=== PATIENT | female | born 1980 | race Caucasian/White ===

== ENCOUNTER 2016-12-11 12:58 | Inpatient (IN) | payer MEDICARE, OTHER ==
[2016-12-11 14:10] VITALS: BMI 30.2
--- NOTE | 2016-12-11 14:15 | ED PDOC ---
Arrival/HPI - General Chief Complaint: GI Problem Time Seen by Provider: 12/11/16 13:43 Historian: Patient - History of Present Illness Narrative History of Present Illness (Text): 12/11/16 14:00 A 36 year old female, whose past medical history includes cholelithiasis, nephrolithiasis and anxiety, presents to the emergency department complaining of generalized upper abdominal pain associated with nausea since this morning, sudden onset. She says the pain is a "10 out of a 10" on the pain scale. Patient notes some tightness in the chest, which is associated with shortness of breath. Patient denies any fever, urinary changes, or other complaints at this time. PMD: Dr. Frias 12/12/16 08:05 Time/Duration: 4-6 hours Symptom Onset: Sudden Symptom Course: Unchanged Quality: Tightness, Other Severity Level: 10 Activities at Onset: Rest Context: Home Past Medical History - Provider Review Nursing Documentation Reviewed: Yes - Infectious Disease Hx of Infectious Diseases: None - Tetanus Immunization Tetanus Immunization: Unknown - Cardiac Hx Cardiac Disorders: No Hx RI: No Hx Heart Murmur: No Hx Heart Transplant: No Hx Hypertension: No Hx Hypotension: No Hx Internal Defibrillator: No Hx Mitral Valve Prolapse: No Hx Pacemaker: No Hx Peripheral Edema: No Hx Peripheral Vascular Disease: No - Pulmonary Hx Respiratory Disorders: No - Neurological Hx Neurological Disorder: No - HEENT Hx HEENT Disorder: No - Renal Hx Kidney Stones: Yes - Endocrine/Metabolic Hx Endocrine Disorders: No - Hematological/Oncological Hx Blood Disorders: No Hx Anemia: Yes - Integumentary Hx Dermatological Disorder: No - Musculoskeletal/Rheumatological Hx Musculoskeletal Disorders: No - Gastrointestinal Hx Gastrointestinal Disorders: No Hx Gall Bladder Disease: Yes (Cholelithiasis on recent Abdominal U/S) Hx Gastroesophageal Reflux: Yes - Genitourinary/Gynecological Hx Genitourinary Disorders: No - Psychiatric Hx Anxiety: Yes (Sees a Psychiatrist in [place]) Hx Panic Disorder: Yes Hx Post Traumatic Stress Disorder: Yes Hx Substance Use: No - Surgical History Hx Section: Yes (x 2) - Anesthesia Hx Anesthesia: Yes Hx Anesthesia Reactions: No Hx Malignant Hyperthermia: No - Suicidal Assessment Feels Threatened In Home Enviroment: No Family/Social History - Physician Review Nursing Documentation Reviewed: Yes Family/Social History: Unknown Family HX Smoking Status: Heavy Smoker > 10 Cigarettes Daily Hx Alcohol Use: No Hx Substance Use: No Hx Substance Use Treatment: No Allergies/Home Meds Allergies/Adverse Reactions: Allergies azithromycin [From Zithromax] Allergy (Verified 12/11/16 13:20) ANAPHYLAXIS clarithromycin [From Biaxin] Allergy (Verified 12/11/16 13:20) ANAPHYLAXIS Home Medications: Home Meds Medication Instructions Recorded Confirmed Clonazepam [Klonopin] 1 mg PO DAILY 03/21/14 12/11/16 Multivit/Folic Acid/I 1 tab PO DAILY 02/01/16 12/11/16 [ Plus] Review of Systems - Review of Systems Constitutional: absent: Fevers Eyes: absent: Vision Changes ENT: absent: Rhinorrhea Respiratory: SOB Cardiovascular: Chest Pain Gastrointestinal: Abdominal Pain, Nausea Genitourinary Female: absent: Dysuria, Urine Output Changes Musculoskeletal: absent: Back Pain Skin: absent: Rash Neurological: absent: Headache Endocrine: absent: Polyuria Psychiatric: absent: Depression Physical Exam - Physical Exam Narrative Physical Exam (Text): Head: Atraumatic. Normocephalic. Eyes: PERRL. EOMI. Conjunctivae are not pale. ENT: Mucous membranes are moist and intact. Oropharynx is clear and symmetric. Neck: Supple. Full ROM. No JVD. No lymphadenopathy. Cardiovascular: Regular rate. Regular rhythm. No murmurs, rubs, or gallops. Distal pulses are 2+ and symmetric. Pulmonary/Chest: No evidence of respiratory distress. Clear to auscultation bilaterally. No wheezing, rales or rhonchi. Abdominal: Focal tenderness with palpation in the epigastric region. Diffuse pain to LUQ and RUQ. Negative Caba's sign. No rebound, guarding, or rigidity. No organomegaly. Good bowel sounds. Back: No CVA tenderness. No midline tenderness. Extremities: No edema. No cyanosis. No clubbing. Full range of motion in all extremities. No calf tenderness. Skin: Skin is diaphoretic. Neurological: Alert, awake, and oriented to person, place, time, and situation. Normal speech. Motor and sensory intact. Psychiatric: Good eye contact. Anxious. Vital Signs Reviewed: Yes Vital Signs Temp Pulse Resp BP Pulse Ox 12/11/16 13:25 98.0 F 94 H 18 121/82 98 12/11/16 13:14 98 F 94 H 18 121/82 98 Temperature: Afebrile Blood Pressure: Normal Pulse: Regular Respiratory Rate: Normal Appearance: Positive for: Uncomfortable Pain Distress: Severe Mental Status: Positive for: Alert and Oriented X 3 Medical Decision Making ED Course and Treatment: 12/11/16 14:00 Impression: A 36 year old female with abdominal pain. On examination patient has focal tenderness to the epigastric region. Differential Diagnosis include but are not limited to: biliary colic vs. cholecystitis vs. gastritis Plan: Give IV medication for pain. Obtain ultrasound of the gallbladder. Prior Visits: Notes and results from previous visits were reviewed. Patient had an ultrasound in 03/22 which showed cholelithiasis. Progress Notes: Patient with severe epigastric pain on palpation. Described as sudden onset. She reports prior hx of gallstones. No flank pain reported but pain at times radiates to back. She initially does not want iv narcotics. After iv fluids, pepcid, zofran, pain persistent and severe. IV morphine given. Ultrasound reveals gallstones. Suspect possible cholecysitis given persistent pain. Blood cultures and iv antibiotics initiated. Will consult surgery and order HIDA. No chest pain or shortness of breath on re- evaluation. Lungs clear. Patient's treatment plan reviewed with patient and family and she is agreeable. Surgery consulted and present in ED. On re-exam, patient with no chest pain or sob. Suspect component of anxiety or reflux that made patient feel sob initially. No calf pain, no pleuritic pain. - Lab Interpretations Lab Results: 12/11/16 15:11 12/11/16 15:11 Lab Results 12/11/16 15:31: Urine Color Yellow, Urine Appearance Clear, Urine pH 6.0, Ur Specific [place] >= 1.030, Urine Protein Trace H, Urine Glucose (UA) Negative, Urine Ketones Negative, Urine Blood Moderate H, Urine Nitrate Negative, Urine Bilirubin Negative, Urine Urobilinogen 0.2, Ur Leukocyte Esterase Negative, Urine RBC 15 - 20, Urine WBC 0 - 2, Ur Epithelial Cells 4 - 5, Uric Acid Crystals Small, Other Crystals Bili, Amorphous Sediment Few, Urine Bacteria Mod , Hyaline Casts 0 - 2, Urine HCG, Qual Negative 12/11/16 15:11: WBC 13.6 H D, RBC 4.32, Hgb 13.7, Hct 40.2, MCV 93.1, MCH 31.7, MCHC 34.1, RDW 13.8, Plt Count 353, MPV 9.2, Gran % 73.8 H, Lymph % (Auto) 18.6 L, [place] % (Auto) 7.4 H, Eos % (Auto) 0.1 L, Baso % (Auto) 0.1, Gran # 10.04 H, Lymph # 2.5, [place] # 1.0 H, Eos # 0.0, Baso # 0.01, PT 9.8 L, INR 0.91 L, APTT 25.9, pO2 77 H, VBG pH 7.34, VBG pCO2 41.0, VBG HCO3 22.1, VBG Total CO2 23.4, VBG O2 Sat (Calc) 96.6 H, VBG Base Excess -3.5 L, VBG Potassium 4.6, Glucose 117 H, Lactate 1.9, FiO2 21.0, Sodium 136.0, Potassium 4.8, Chloride 108.0 H, Carbon Dioxide 24, Anion Gap 13, BUN 11, Creatinine 0.6, Est GFR ( Amer) > 60, Est GFR (Non-Af Amer) > 60, Random Glucose 114 H, Calcium 9.3, Total Bilirubin 0.7, AST 37, ALT 24, Alkaline Phosphatase 86, Lactate Dehydrogenase 467, Total Creatine Kinase 82, Troponin I < 0.01, Total Protein 8.1, Albumin 4.3 , Globulin 3.8, Albumin/Globulin Ratio 1.1, Amylase 73, Lipase 34, Venous Blood Potassium 4.6 I have reviewed the lab results: Yes - RAD Interpretation Radiology Orders: 12/11/16 14:12 CHEST ONE VIEW [RAD] Stat 12/11/16 14:13 ABDOMEN COMPLETE [US] Stat - Medication Orders Current Medication Orders: Sodium Chloride (Sodium Chloride 0.9%) 1,000 mls @ 100 mls/hr IV .Q10H BHARAT Last Admin: 12/11/16 16:40 Dose: 100 MLS/HR eMAR Start Stop Document 12/11/16 16:40 OCS (Rec: 12/11/16 16:40 OCS [facility] [id number]) Intravenous Solution Start Date 12/11/16 Start Time 16:40 Morphine Sulfate (Morphine) 2 mg IVP Q4 PRN PRN Reason: Pain, moderate (4-7) Morphine Sulfate (Morphine) 4 mg IVP Q4H PRN PRN Reason: Pain, severe (8-10) Ondansetron HCl (Zofran Inj) 4 mg IVP Q4H PRN PRN Reason: Nausea/Vomiting Pantoprazole Sodium (Protonix Inj) 40 mg IVP DAILY BHARAT Discontinued Medications Clonazepam (Klonopin) 1 mg PO STAT STA PRN Reason: Protocol Stop: 12/11/16 22:11 Last Admin: 12/11/16 22:29 Dose: 1 MG Behavioural Document 12/11/16 22:29 PCO (Rec: 12/11/16 22:30 [place]O [id number] Nonmedicinal Nonmedicinal Interventions Redirect Behavior Behavior for Medication: Anxiety Insomnia Re-Assess: Reassess Psych Meds Document 12/11/16 23:29 PCO (Rec: 12/11/16 23:45 PCO [facility] [id number]) Reassess Psych Med Effective Famotidine (Pepcid) 20 mg IVP STAT STA Stop: 12/11/16 14:16 Last Admin: 12/11/16 16:40 Dose: 20 MG IVP Administration Document 12/11/16 16:40 OCS (Rec: 12/11/16 16:40 OCS [facility] [id number]) Charges for Administration # of IVP Administrations 1 Ceftriaxone Sodium (Rocephin 1 Gram Ivpb) 100 mls @ 200 mls/hr IVPB ONCE STA PRN Reason: Protocol Stop: 12/11/16 18:30 Last Admin: 12/11/16 19:33 Dose: 200 MLS/HR eMAR Start Stop Document 12/11/16 19:33 RD (Rec: 12/11/16 19:33 RD [id number]) Intravenous Solution Start Date 12/11/16 Start Time 19:33 End Date 12/11/16 End time 20:03 Total Infusion Time 30 Morphine Sulfate (Morphine) 2 mg IVP STAT STA Stop: 12/11/16 17:28 Last Admin: 12/11/16 17:46 Dose: 2 MG MAR Pain Assessment Document 12/11/16 17:46 OCS (Rec: 12/11/16 17:46 OCS [facility] [email or web address]) Pain Reassessment Is this a pain reassessment? Yes Sleep Is patient sleeping during reassessment? No Presence of Pain Presence of Pain Yes Pain Scale Used Pain Scale Used Numeric Location Pain Location Body Site Abdomen Description Description Constant Intensity of Pain at present 10 Pain Behavior Moaning Irritability IVP Administration Document 12/11/16 17:46 OCS (Rec: 12/11/16 17:46 OCS [facility] [id number]) Charges for Administration # of IVP Administrations 1 Morphine Sulfate (Morphine) 2 mg IVP STAT STA Stop: 12/11/16 19:03 Last Admin: 12/11/16 19:33 Dose: 2 MG MAR Pain Assessment Document 12/11/16 19:33 RD (Rec: 12/11/16 19:33 RD [id number]) Pain Reassessment Is this a pain reassessment? No Sleep Is patient sleeping during reassessment? No Presence of Pain Presence of Pain Yes IVP Administration Document 12/11/16 19:33 RD (Rec: 12/11/16 19:33 RD [id number]) Charges for Administration # of IVP Administrations 1 Ondansetron HCl (Zofran Inj) 4 mg IVP ONCE ONE Stop: 12/11/16 14:16 Last Admin: 12/11/16 16:41 Dose: 4 MG IVP Administration Document 12/11/16 16:41 OCS (Rec: 12/11/16 16:41 [id number] Charges for Administration # of IVP Administrations 1 - Scribe Statement The provider has reviewed the documentation as recorded by the Renateibe Carole Arce Provider Scribe Attestation: All medical record entries made by the Scribe were at my direction and personally dictated by me. I have reviewed the chart and agree that the record accurately reflects my personal performance of the history, physical exam, medical decision making, and the department course for this patient. I have also personally directed, reviewed, and agree with the discharge instructions and disposition. Disposition/Present on Arrival - Present on Arrival Any Indicators Present on Arrival: No History of DVT/PE: No History of Uncontrolled Diabetes: No Urinary Catheter: No History of Decub. Ulcer: No History Surgical Site Infection Following: None - Disposition Have Diagnosis and Disposition been Completed?: Yes Diagnosis: Cholelithiasis, Abdominal pain Disposition: HOSPITALIZED Disposition Time: 17:00 Patient Plan: Admission Patient Problems: Current Active Problems Problem Status Diagnosed Abdominal pain Acute Cholelithiasis Acute Condition: FAIR
[2016-12-11 15:18] LABS: ADD MANUAL DIFF? NO
[2016-12-11 15:23] LABS: VENOUS BLOOD GAS BASE EXCESS -3.5 mmol/L (0.0-2.0); VENOUS BLOOD PH 7.34 (7.32-7.43)
[2016-12-11 15:31] LABS: BASO # 0.01 K/mm3 (0.0-2.0); BASO % 0.1 % (0.0-3.0); EOS % 0.1 % (1.5-5.0); GRAN # 10.04 (1.4-6.5); GRAN % 73.8 % (50.0-68.0); HEMATOCRIT 40.2 % (36.0-48.0); LYMPH # 2.5 (1.2-3.4); LYMPH % 18.6 % (22.0-35.0); MEAN CELL VOLUME 93.1 fL (80.0-105.0); MEAN CORPUSCULAR HEMOGLOBIN 31.7 pg (25.0-35.0); MEAN CORPUSCULAR HGB CONC 34.1 g/dl (31.0-37.0); MEAN PLATELET VOLUME 9.2 fl (7.0-11.0); MONO % 7.4 % (1.0-6.0); PLATELET COUNT 353 10^3/uL (120.0-450.0); RED CELL DISTRIBUTION WIDTH 13.8 % (11.5-14.5); WHITE BLOOD COUNT 13.6 10^3/ul (4.5-11.0)
[2016-12-11 15:34] LABS: ALB/GLOB RATIO 1.1 (1.1-1.8); ALKALINE PHOSPHATASE 86 U/L (38-133); ALT/SGPT 24 U/L (7-56); AMYLASE 73 U/L (35-125); AST/SGOT 37 U/L (15-39); BILIRUBIN,TOTAL 0.7 mg/dL (0.2-1.3); BLOOD UREA NITROGEN 11 mg/dL (7-21); CALCIUM 9.3 mg/dL (8.4-10.5); CARBON DIOXIDE 24 mmol/L (21-33); CHLORIDE 104 mmol/L (98-107); GFR AFRICAN-AMERICAN > 60; GLUCOSE,RANDOM 114 mg/dL (70-110); LIPASE 34 U/L (23-300); SODIUM 136 mmol/L (132-148); TOTAL PROTEIN 8.1 g/dL (5.8-8.3)
[2016-12-11 15:35] LABS: INR 0.91 (0.93-1.08); PARTIAL THROMBOPLASTIN TIME 25.9 Seconds (23.7-30.8)
[2016-12-11 15:37] LABS: POTASSIUM 4.8 mmol/L (3.6-5.0)
[2016-12-11 15:45] LABS: URINE BILIRUBIN NEGATIVE (NEGATIVE); URINE BLOOD MODERATE (NEGATIVE); URINE GLUCOSE (UA) NEGATIVE (NEGATIVE); URINE KETONE NEGATIVE (NEGATIVE); URINE LEUKOCYTE ESTERASE NEGATIVE Leu/uL (NEGATIVE); URINE PROTEIN TRACE mg/dL (<30 mg/dL); URINE UROBILINOGEN 0.2 E.U./dL (<1 E.U./dL)
[2016-12-11 15:47] LABS: TROPONIN I < 0.01 ng/mL
[2016-12-11 15:48] LABS: URINE APPEARANCE CLEAR (CLEAR); URINE COLOR YELLOW (YELLOW)
[2016-12-11 16:00] LABS: URINE RBC 15 - 20 /hpf (0-2); URINE WBC 0 - 2 /hpf (0-6)
[2016-12-11 16:01] LABS: URINE BACTERIA MOD (NEG)
[2016-12-11 16:02] LABS: URINE AMORPHOUS SEDIMENT FEW
[2016-12-11 16:06] LABS: URINE OTHER CRYSTALS BILI /hpf
[2016-12-11 16:08] LABS: URINE URIC ACID CRYSTALS SMALL /hpf
--- NOTE | 2016-12-11 16:25 | RAD ---
PROCEDURE: CHEST RADIOGRAPH, 1 VIEW HISTORY: upper abdominal pain, hx of gallstones COMPARISON: None available. FINDINGS: LUNGS: Clear. PLEURA: No pneumothorax or pleural fluid seen. CARDIOVASCULAR: Normal. OSSEOUS STRUCTURES: No significant abnormalities. VISUALIZED UPPER ABDOMEN: Normal. OTHER FINDINGS: None. IMPRESSION: No active disease.
[2016-12-11] MEDS: Sodium Chloride 0.9% 1,000 ML IV SCH (16:40)
--- NOTE | 2016-12-11 17:16 | US ---
HISTORY: upper abdominal pain COMPARISON: 03/14/2014. TECHNIQUE: Sonographic evaluation of the abdomen. FINDINGS: LIVER: Measures 15.7 cm. Patent portal vein. Portal venous flow: Hepatopetal. Unremarkeable echogenicity of the liver parenchyma. No mass. No intrahepatic bile duct dilatation. GALLBLADDER: Cholelithiasis. Negative study for gallbladder wall thickening, pericholecystic fluid, sonographic Caba's sign. COMMON BILE DUCT: Measures 2.8 mm. No stones. No dilatation. PANCREAS: Unremarkable as visualized. No mass. No ductal dilatation. RIGHT KIDNEY: Measures 10.4 x 4.7cm. Normal echogenicity. No calculus, mass, or hydronephrosis. LEFT KIDNEY: Measures 11.2 x 5.6cm. Normal echogenicity. No calculus, mass, or hydronephrosis. SPLEEN: Normal in size and contour. No mass. AORTA: Obscured by overlying bowel gas. Non diagnostic assessment of abdominal aorta. . IVC: Unremarkable. OTHER FINDINGS: None. IMPRESSION: Cholelithiasis. No sonographic evidence of acute cholecystitis. No significant interval change compared to the prior examination(s).
[2016-12-11] MEDS ORDERED: Morphine 2 mg/ml ISec IVP STA ×2 (17:27→19:02)
[2016-12-11] MEDS ORDERED: cefTRIAXone 1 gm 100 ML IVPB STA (18:01)
--- NOTE | 2016-12-11 18:44 | CARD ---
APPROVED REPORT EKG Measurement Heart [id number] <Conclusion> Normal sinus rhythm Normal ECG
--- NOTE | 2016-12-11 19:30 | CP.PCM.CON ---
History of Present Illness - History of Present Illness History of Present Illness: Surgery Consult: Dr. Raya Reason for consult: r/o acute cholecystitis CC: abdominal pain, epigastric HPI: Patient is a 36 y/o female who presents complaining of abdominal pain that started acutely this morning. She states the pain is located diffusely throughout her stomach and radiates to her back. She says most of the pain is epigastric. She reports the pain being so severe it woke her from sleep this morning. She states she had nausea w/ 3 episodes on nonbloody vomiting. She denies diarrhea or constipation. Last bowel movement was this am and reported as normal. She described similar pain in the past once being diagnosed w/ kidney stones and once being told she had gallstones. She denies pain being exacerbated by food. She denies dysuria or hematuria. Currently she states the pain has subsided and feels comfortable. PMH: nephrolithiasis, cholelithiasis, anxiety, LMP: 11/2016 PSH: C-sections x2, hysteroscopy, diagnostic laparoscopy for pelvic pain? patient unsure, endoscopy Social: current everyday smoker, 2 children lives with family Review of Systems - Review of Systems All systems: reviewed and no additional remarkable complaints except Review of Systems: unless stated in HPI - Constitutional Constitutional: absent: Anorexia, Chills, Fever - EENT Eyes: absent: Blurred Vision, Change in Vision Ears: absent: Disequilibrium, Dizziness Nose/Mouth/Throat: absent: Nasal Congestion, Nasal Trauma - Cardiovascular Cardiovascular: absent: Chest Pain, Diaphoresis - Respiratory Respiratory: absent: Cough, Wheezing - Gastrointestinal Gastrointestinal: Abdominal Pain, Bloating, Nausea, Vomiting. absent: Constipation, Diarrhea, Heartburn - Genitourinary Genitourinary: absent: Hematuria, Pyuria - Reproductive: Female Reproductive:Female: As Per HPI - Musculoskeletal Musculoskeletal: absent: Myalgias, Neck Pain - Integumentary Integumentary: absent: Skin Ulcer, Jaundice - Neurological Neurological: absent: Dizziness, Headaches - Psychiatric Psychiatric: Anxiety. absent: Depression - Endocrine Endocrine: absent: Polydipsia, Polyphagia - Hematologic/Lymphatic Hematologic: absent: Easy Bleeding, Easy Bruising Past Patient History - Infectious Disease Hx of Infectious Diseases: None - Tetanus Immunizations Tetanus Immunization: Unknown - Past Medical History & Family History Past Medical History?: Yes - Past Social History Smoking Status: Heavy Smoker > 10 Cigarettes Daily - CARDIAC Hx Cardiac Disorders: No Hx Heart Attack: No Hx Heart Murmur: No Hx Heart Transplant: No Hx Hypertension: No Hx Hypotension: No Hx Internal Defibrillator: No Hx Mitral Valve Prolapse: No Hx Pacemaker: No Hx Peripheral Edema: No Hx Peripheral Vascular Disease: No - PULMONARY Hx Respiratory Disorders: No - NEUROLOGICAL Hx Neurological Disorder: No - HEENT Hx HEENT Problems: No - RENAL Hx Kidney Stones: Yes - ENDOCRINE/METABOLIC Hx Endocrine Disorders: No - HEMATOLOGICAL/ONCOLOGICAL Hx Blood Disorders: No Hx Anemia: Yes - INTEGUMENTARY Hx Dermatological Problems: No - MUSCULOSKELETAL/RHEUMATOLOGICAL Hx Musculoskeletal Disorders: No - GASTROINTESTINAL Hx Gastrointestinal Disorders: No Hx Gall Bladder Disease: Yes (Cholelithiasis on recent Abdominal U/S) Hx Gastroesophageal Reflux: Yes - GENITOURINARY/GYNECOLOGICAL Hx Genitourinary Disorders: No - PSYCHIATRIC Hx Anxiety: Yes (Sees a Psychiatrist in [place]) Hx Panic Symptoms: Yes Hx Post Traumatic Stress Disorder: Yes Hx Substance Use: No - SURGICAL HISTORY Hx Section: Yes (x 2) - ANESTHESIA Hx Anesthesia: Yes Hx Anesthesia Reactions: No Hx Malignant Hyperthermia: No Meds Allergies/Adverse Reactions: Allergies Allergy/AdvReac Type Severity Reaction Status Date / Time azithromycin [From Zithromax] Allergy ANAPHYLAXIS Verified 12/11/16 13:20 clarithromycin [From Biaxin] Allergy ANAPHYLAXIS Verified 12/11/16 13:20 - Medications Medications: Current Medications Sodium Chloride (Sodium Chloride 0.9%) 1,000 mls @ 100 mls/hr IV .Q10H BHARAT Last Admin: 12/11/16 16:40 Dose: 100 mls/hr Physical Exam - Constitutional Appears: Non-toxic, No Acute Distress - Head Exam Head Exam: ATRAUMATIC, NORMOCEPHALIC - Eye Exam Eye Exam: EOMI, Normal appearance - ENT Exam ENT Exam: Mucous Membranes Moist - Respiratory Exam Respiratory Exam: NORMAL BREATHING PATTERN. absent: Respiratory Distress - Cardiovascular Exam Cardiovascular Exam: REGULAR RHYTHM. absent: Tachycardia - GI/Abdominal Exam GI & Abdominal Exam: Soft. absent: Distended, Guarding, Rebound, Rigid, Tenderness Additional comments: umbilical piercing - Extremities Exam Extremities exam: Positive for: normal inspection. Negative for: calf tenderness - Back Exam Back exam: absent: CVA tenderness (L), CVA tenderness (R) - Neurological Exam Neurological exam: Alert, Oriented x3 - Psychiatric Exam Psychiatric exam: Normal Affect, Normal Mood - Skin Skin Exam: Dry, Normal Color, Warm Results - Vital Signs Recent Vital Signs: Last Vital Signs Temp 98.0 F 12/11/16 13:25 Pulse 94 H 12/11/16 13:25 Resp 18 12/11/16 13:25 BP 121/82 12/11/16 13:25 Pulse Ox 98 12/11/16 13:25 - Labs Result Diagrams: 12/11/16 15:11 12/11/16 15:11 Assessment & Plan - Assessment and Plan (Free Text) Assessment: 36 y/o female w/ abdominal pain, r/o acute cholecystitis Plan: -f/u CT scan for possible kidney stones -HIDA scan -NPO for now -IVFs -IV abx -pain control -nausea control -am labs -further recs per Dr. Elver Sun PGY1 - Date & Time Date: 12/11/16 Time: 19:34
[2016-12-11] MEDS ORDERED: Morphine 4 mg/ml ISec IVP PRN (19:34)
[2016-12-11] MEDS ORDERED: Morphine 2 mg/ml ISec IVP PRN (19:34)
--- NOTE | 2016-12-11 22:44 | CT ---
EXAM: CT Abdomen and Pelvis Without Intravenous Contrast CLINICAL HISTORY: 36 years old, female; Pain; Abdominal pain; Acute; Additional info: Assess for renal colic TECHNIQUE: Axial computed tomography images of the abdomen and pelvis without intravenous contrast. This CT exam was performed using one or more of the following dose reduction techniques: automated exposure control, adjustment of the mA and/or kV according to patient size, and/or use of iterative reconstruction technique. Coronal and sagittal reformatted images were created and reviewed. COMPARISON: US - ABDOMEN COMPLETE 12/11/2016 3:41:25 PM FINDINGS: Lower thorax: No acute findings. ABDOMEN: Liver: Unremarkable. Gallbladder and bile ducts: Calcified gallstone. Apparent mild gallbladder wall thickening. No ductal dilation. Pancreas: Unremarkable. No ductal dilation. Spleen: No splenomegaly. Adrenals: No mass. Kidneys and ureters: Small calculus within LEFT kidney. No hydronephrosis. Stomach and bowel: No definite mural thickening. No obstruction. Appendix: Normal caliber. No inflammation. PELVIS: Bladder: Unremarkable. No stones. Reproductive: Probable small RIGHT ovarian follicle. ABDOMEN and PELVIS: Intraperitoneal space: No significant fluid collection. No free air. Bones/joints: No acute fracture. Soft tissues: Tiny umbilical hernia containing fat. Vasculature: Unremarkable. No abdominal aortic aneurysm. Lymph nodes: No pathologically enlarged lymph nodes. IMPRESSION: 1. Nonobstructing renal calculus. 2. Cholelithiasis with apparent gallbladder wall thickening. Suggest repeat ultrasound. 3. Incidental/non-acute findings are described above.
[2016-12-12 07:47] LABS: ADD MANUAL DIFF? NO
[2016-12-12 07:57] LABS: BASO # 0.01 K/mm3 (0.0-2.0); BASO % 0.1 % (0.0-3.0); EOS # 0.1 (0.0-0.7); EOS % 0.9 % (1.5-5.0); GRAN # 4.75 (1.4-6.5); GRAN % 48.5 % (50.0-68.0); HEMATOCRIT 33.8 % (36.0-48.0); LYMPH # 4.1 (1.2-3.4); LYMPH % 41.8 % (22.0-35.0); MEAN CELL VOLUME 94.4 fL (80.0-105.0); MEAN CORPUSCULAR HEMOGLOBIN 31.3 pg (25.0-35.0); MEAN CORPUSCULAR HGB CONC 33.1 g/dl (31.0-37.0); MEAN PLATELET VOLUME 8.6 fl (7.0-11.0); MONO # 0.9 (0.1-0.6); MONO % 8.7 % (1.0-6.0); PLATELET COUNT 294 10^3/uL (120.0-450.0); RED CELL DISTRIBUTION WIDTH 14.1 % (11.5-14.5); WHITE BLOOD COUNT 9.8 10^3/ul (4.5-11.0)
--- NOTE | 2016-12-12 08:03 | CON ---
DATE: 12/11/2016 This patient was seen in the Emergency Room. The patient's was at bedside. This 36-year-old pa tient admitted with acute onset of abdominal pain . She did have similar episodes in the past, 2 episodes in the last few months. But this time, this pain was so severe and came to the Emergency Room. She complains of pain more in the left upper quadrant, right upper quadrant, epigastric area, but more so the discomfort in the right upper quadrant area. No fever. This patient has severe pain . Describes also the pain in the lower chest area. The patient did have a history of abdominal bloa ting, especially after meals, multiple times. The patient has been taking nonsteroidal anti-inflamma tories Aleve and also ibuprofen intermittently. The patient never had an endoscopy or colonoscopy. She was in [facility] a year ago and she had a CAT scan done and she was told that it shows kidney stones, sent home. Other past medical history is significant as above, history of anxi ety. REVIEW OF SYSTEMS: Other systems reviewed, negative. SOCIAL HISTORY: Denies smoking alcohol use. ALLERGIES: SHE IS ALLERGIC TO ZITHROMAX AND CLARITHROMYCIN. PHYSICAL EXAMINATION: GENERAL: The patient is lying on the bed, not in acute distress. VITAL SIGNS: Temperature is 98, blood pressure is 121/82, respirations 18. HEENT: Atraumatic, anicteric. NECK: Supple. HEART: S1, S2 heard. LUNGS: Bilateral air entry present. ABDOMEN: Soft. There is tenderness the right upper quadrant area. There is no rebound or gua rding. EXTREMITIES: No edema. No cyanosis. NEUROLOGIC: Alert, oriented. Moves all the extremities. LABORATORY DATA: Hemoglobin 13.7, hematocrit 40.2, WBCs 13.8, platelets 353. Chemistry shows essent ially unremarkable. The patient did have an ultrasound scan of the abdomen, showed multiple gallstones. CBD was normal. The patient subsequently had a CAT scan of the abdomen and pelvis done and found to have renal calcu catherine on the left side, small gallstones with thickening of the gallbladder wall. IMPRESSION: This 36-year-old patient admitted with acute onset of abdominal pain. The patient does have gallstones and the CAT scan shows some thickening of the gallbladder wall. Rule out acute meeta cystitis. RECOMMENDATIONS: Would start the patient on IV antibiotics. Request for HIDA scan, surgical followu p. The patient also complaining of some abdominal bloating, history of nonsteroidal anti-inflammator y drug use. Would benefit from PPI and patient has been on Protonix. We will continue that. Thank you very much for allowing us to participate in the care of the patient. Rashmi Kwok MD cc: [id number] TT: 12/12/2016 08:02:39 Confirmation # [id number] Dictation # [id number]
[2016-12-12 08:13] LABS: ALKALINE PHOSPHATASE 71 U/L (38-133); ALT/SGPT 31 U/L (7-56); AST/SGOT 21 U/L (15-39); BILIRUBIN,TOTAL 0.6 mg/dL (0.2-1.3); BLOOD UREA NITROGEN 9 mg/dL (7-21); CALCIUM 8.1 mg/dL (8.4-10.5); CARBON DIOXIDE 24 mmol/L (21-33); CHLORIDE 107 mmol/L (98-107); GFR AFRICAN-AMERICAN > 60; GLUCOSE,RANDOM 95 mg/dL (70-110); POTASSIUM 4.2 mmol/L (3.6-5.0); SODIUM 137 mmol/L (132-148); TOTAL PROTEIN 6.3 g/dL (5.8-8.3)
--- NOTE | 2016-12-12 08:38 | CP.PCM.PN ---
Subjective - Date & Time of Evaluation Date of Evaluation: 12/12/16 Time of Evaluation: 08:33 - Subjective Subjective: SURGICAL PROGRESS NOTE FOR DR. ANNE Pt seen and examined at bedside. Resting comfortably. Abd pain has improved. Denies having any N/V/D/C or fevers or chills. Objective - Vital Signs/Intake and Output Vital Signs (last 24 hours): Temp Pulse Resp BP Pulse Ox 98 F 94 H 18 121/82 98 12/11/16 22:06 12/11/16 22:06 12/11/16 22:06 12/11/16 22:06 12/11/16 13:25 Intake and Output: 12/12/16 12/12/16 06:59 18:59 Intake Total 800 Balance 800 - Medications Medications: Current Medications Sodium Chloride (Sodium Chloride 0.9%) 1,000 mls @ 100 mls/hr IV .Q10H [facility] Last Admin: 12/11/16 16:40 Dose: 100 mls/hr Morphine Sulfate (Morphine) 2 mg IVP Q4 PRN PRN Reason: Pain, moderate (4-7) Morphine Sulfate (Morphine) 4 mg IVP Q4H PRN PRN Reason: Pain, severe (8-10) Ondansetron HCl (Zofran Inj) 4 mg IVP Q4H PRN PRN Reason: Nausea/Vomiting Pantoprazole Sodium (Protonix Inj) 40 mg IVP DAILY BHARAT - Labs Labs: 12/12/16 07:30 12/12/16 07:30 PT 9.8 Seconds (9.9-11.8) L 12/11/16 15:11 INR 0.91 (0.93-1.08) L 12/11/16 15:11 APTT 25.9 Seconds (23.7-30.8) 12/11/16 15:11 - Constitutional Appears: Non-toxic, No Acute Distress - Head Exam Head Exam: ATRAUMATIC - Respiratory Exam Respiratory Exam: absent: Accessory Muscle Use, Respiratory Distress - GI/Abdominal Exam GI & Abdominal Exam: Soft. absent: Distended, Firm, Guarding, Rigid, Tenderness - Neurological Exam Neurological Exam: Alert, Awake, Oriented x3 - Psychiatric Exam Psychiatric exam: Normal Affect, Normal Mood - Skin Skin Exam: Dry, Intact, Normal Color, Warm Assessment and Plan - Assessment and Plan (Free Text) Assessment: 36 y/o female w/ abdominal pain, r/o acute cholecystitis Plan: -CT abd w/o PO or IV contrast shows non-obstructing renal calculus; cholelithiasis with apparent gallbladder wall thickening -Abd US shows cholelithiasis with no evidence of acute cholecystitis -HIDA scan scheduled for today. will f/u on results -NPO for now -IVFs -IV abx -pain control -nausea control -GI consulted, will follow up on recs Will discuss with attending Dr. Anne for further recs. Rabia May PGY1
[2016-12-12] MEDS: Sodium Chloride 0.9% 1,000 ML IV SCH ×2 (09:41→17:33)
--- NOTE | 2016-12-12 14:14 | HP ---
She is a 36-year-old young female with history of depression, bipolar disorders. She came in to the hospital with abdominal pain. HISTORY OF PRESENT ILLNESS: The patient has this pain in the past on and off. She was seen in [facility] (formerly [facility]) in the past and they told her she has kidney stone. At this time, the patient has been complaining of intermittent abdominal pain. In the last 24 hours, she feels more upper abdo juan pain, nauseous, she vomited 4 or 5 times the day of admission and came to the ER for further ev aluation. She has pain all across the upper abdomen, more on the right. She also had been taking ib uprofen several times because of the pain and she has no fever, no chills, no short of breath, no leigh st pain, no other complaints. PAST MEDICAL HISTORY: As I mentioned, bipolar disorder, depression, she is on disability with that. She also has history of anesthesia problems. She recovers slowly from certain anesthesia medication s that she does not know. I did advise the patient to mention that to the anesthesiologist clearly, exact name of the medicine unclear, possible succinylcholine, will try to get the records. She also has history of bipolar disorder, depression, she is obese. FAMILY HISTORY: Noncontributory. ALLERGIES: SHE IS ALLERGIC TO AZITHROMYCIN, CLARITHROMYCIN. REVIEW OF SYSTEMS: As in the present illness, feeling depressed, anxiety, seen by a psychiatrist in the past. She is having a boyfriend who is currently on the bedside. MEDICATIONS: The patient also takes multivitamins and takes Klonopin 1 mg once a day every day. PHYSICAL EXAMINATION: GENERAL: The patient was seen on the medical floor on the bedside with her boyfriend next to her. S he is alert, awake, oriented x 3, no distress. She does have mild abdominal pain and she received mo rphine and she feels anxious. VITAL SIGNS: Her temperature 98, heart rate 94, blood pressure 121/82, respirations 18, saturation 9 8%. HEAD AND NECK: Normal. No JVD, no thyromegaly. CHEST: Clear, good entry. CARDIAC: First sound and second sound are normal. ABDOMEN: Soft, very obese. There is tenderness in the upper epigastric right upper quadrant area. Bowel sounds intact. EXTREMITIES: No edema. NEUROLOGIC: Normal. LABORATORY STUDIES: Is as follows: The patient had a CT abdomen that shows gallstones, nonobstructi ng kidney stone and possible gallbladder wall thickening. Ultrasound of the abdomen shows no Caba' s sign, no gallbladder wall thickening and no pericholecystic fluid, but there are multiple gallstone s. White count 13.6, hemoglobin 13.7, hematocrit 40.2, platelets 353. PT, PTT was within normal ran ge. UA shows 15-20 red blood cells, 0-2 white blood cells, 4-5 epithelial cells. Chemistry shows so dium 136, potassium 4.8, chloride 104, bicarb 24, BUN 11, creatinine 0.6. Liver function test is nor mal. Blood sugar 114. Troponin is negative 0.01. Lipase is normal. IMPRESSION AND PLAN: 1. A 36-year-old obese female came in with abdominal pain, tender upper epigastric, history of nonst eroidals, found to have gallstones with leukocytosis. Will admit the patient for acute abdominal ameya n, cholecystitis, possibly. Will get a HIDA scan, IV antibiotic, IV fluids, GI consult, Dr. Kwok and surgical consult, Dr. Raya. 2. Possibly gastritis, nonsteroidal-induced, continue Protonix. The patient advised to avoid any no nsteroidals. 3. History of anesthesia problem, possible succinylcholine-related. She does take a long time to re cover from anesthesia. Will follow up with the anesthesiologist and the surgical team. Continue cur rent treatment. Klonopin will be given and morphine p.r.n. and continue IV fluids and IV Protonix. Malachi Frias MD cc: [phone] TT: 12/12/2016 14:13:50
--- NOTE | 2016-12-12 17:02 | NM ---
PROCEDURE: Nuclear Medicine Hepatobiliary Scan HISTORY: r/o cholecystitis COMPARISON: December 11, 2016. Abdominal ultrasound. Summary of findings on the comparison examination: Cholelithiasis. No sonographic evidence of acute cholecystitis. TECHNIQUE: 5.4 mCi of technetium 99m Mebrofenin was administered intravenously. Planar images of the abdomen were obtained at 5 min intervals to 60 mins. Delayed images were also obtained. FINDINGS: LIVER: Timely and homogenous uptake. COMMON BILE DUCT: identified at 5 mins. GALLBLADDER: Does not visualize at 04:00 SMALL BOWEL: Identified at 5 mins. IMPRESSION: Abnormal/positive Hepatobiliary Scan. The cystic duct is occluded. Presumptive evidence for acute cholecystitis. .
[2016-12-12] MEDS ORDERED: cefTRIAXone 1 gm 100 ML IVPB STA (18:57)
--- NOTE | 2016-12-12 23:00 | PN ---
DATE: 12/12/2016 A 36-year-old female. The patient doing better. She has no chest pain. She still has epigastric di scomfort. No fever. Still nauseous, tolerating liquids. PHYSICAL EXAMINATION: Temperature 98.1, heart rate 70, blood pressure 115/62, respirations 16, 100% saturating. HEAD AND NECK EXAMINATION: Normal. No JVD, no thyromegaly. CHEST EXAMINATION: Clear, good entry. CARDIAC: First sound, second sound normal. ABDOMEN: Soft. There is marked tenderness upper epigastric area, upper abdomen. EXTREMITIES: No edema. NEUROLOGICALLY: Normal. LABORATORY: White count 9.8, hemoglobin 11.2, hematocrit 33.8, platelets 294. Chemistry: Sodium 13 7, potassium 4.2, chloride 107, bicarb 24, BUN 9, creatinine 0.7. Liver functions test is normal. The patient also had a HIDA scan which shows the following: Abnormality, positive hepatobiliary scan , cystic duct is occluded. Presumptive evidence of acute cholecystitis. IMPRESSION AND PLAN: 1. Acute cholecystitis, biliary colic, gallstones. Planned for surgery tomorrow. Continue IV Roceph in, IV fluid, and pain management p.r.n. basis. 2. History of depression and anxiety. Will give Klonopin 1 mg once a day and will follow up clinical ly. 3. THE PATIENT DOES HAVE A HISTORY OF REACTION TO ANESTHESIA MEDICATIONS. UNCLEAR WHETHER IT IS. SH E GETS SHIVERING, SHE GETS TACHYCARDIC. SHE GET SYMPTOMS RELATED TO THE ANESTHESIA, AND POOR CLEARAN CE OF THE ANESTHESIA. We will try to get any more the medications, but she cannot remember. PLAN: Continue current treatment. Continue IV Protonix. Continue Rocephin. Dr. Raya, surgical consult seen the patient. Malachi Frias MD cc: [phone] TT: 12/12/2016 22:59:27 Confirmation # [id number] Dictation # [id number]
[2016-12-13] MEDS: Sodium Chloride 0.9% 1,000 ML IV SCH (03:23)
--- NOTE | 2016-12-13 03:27 | PN ---
DATE: 12/12/2016 SUBJECTIVE: This patient was seen and evaluated today. The patient's was at bedside. His diff use abdominal pain has significantly improved. PHYSICAL EXAMINATION: VITAL SIGNS: Temperature is 98.1, pulse 70, blood pressure is 113/62 HEENT: Atraumatic, anicteric. NECK: Supple. HEART: S1, S2 heard. LUNGS: Bilateral air entry present. ABDOMEN: Soft. There is mild tenderness present on deep palpation of the right upper quadrant area. There is no rebound or guarding. EXTREMITIES: No edema. No cyanosis. NEUROLOGIC: Alert, oriented, moves all the extremities. LABORATORY DATA: Hemoglobin is 11.2, hematocrit 33.8, WBC 9.8, platelets 294. BUN 9, creatinine 0.7 . LFTs: Normal. HIDA scan: Non-visualized. CT of the abdomen and pelvis was done, which was revi ewed. IMPRESSION: Gallstones, thickening of the gallbladder wall. HIDA scan positive, suggestive of acute cholecystitis. The patient also had significant tenderness in the Emergency Room, and was initially seen in constant pain. Also, HIDA scan non-visualized. Clinically, this is acute cholecystitis. T he patient did receive 1 dose of antibiotics in the ER. The patient is due to go to the OR tomorrow. Presently, we will continue the antibiotics. On a clear liquid diet. LFTs normal. Discussed with the patient at length. Thank you very much for allowing us to participate in the care of the patient. Rashmi Kwok MD cc: [phone] TT: 12/13/2016 03:27:03 Confirmation # [id number] Dictation # [id number] vn
[2016-12-13] MEDS: cefTRIAXone 1 gm 100 ML IVPB SCH (09:26)
[2016-12-13] MEDS ORDERED: Midazolam 2 MG/2 ML VIAL ONE (12:06)
[2016-12-13] MEDS ORDERED: Rocuronium 10 mg/ml (5 ml) ONE ×2 (12:06→12:08)
[2016-12-13] MEDS ORDERED: Propofol 10 mg/ml Inj (20 ML) ONE (12:06)
[2016-12-13] MEDS ORDERED: Bupivacaine 0.5% Inj(30mL) ONE (12:08)
[2016-12-13] MEDS ORDERED: Iohexol 240 (50 ml) ONE (12:08)
--- NOTE | 2016-12-13 12:55 | PN ---
DATE: 12/13/2016 Seen and examined at the bedside earlier today. She is n.p.o., waiting to go for her lap cholecystec daniel. No reports of nausea, vomiting. She does have abdominal pain. Denies any fever or chills. VITAL SIGNS: Temperature is 98.3, blood pressure is 96/49, pulse 71, respirations 16, 99 on room air . No new labs are noted for today except for which were reviewed. PHYSICAL EXAMINATION: HEENT: Sclerae are anicteric. NECK: Supple. CARDIAC: S1, S2. LUNGS: Clear. ABDOMEN: With bowel sounds, soft. She does have tenderness to right upper quadrant. No rebound or guarding. EXTREMITIES: No edema. NEUROLOGIC: Awake, alert, and oriented. ASSESSMENT: This is a 36-year-old female who has come with significant abdominal tenderness, mainly to the epigastric right upper quadrant, found to have gallstones or thickening of the gallbladder wal l. HIDA scan was done, which was positive suggestive of acute cholecystitis. Other comorbidities ar e bipolar disorder, depression, obesity. The patient also was noted to have positive blood culture, gram-positive cocci. PLAN: The patient is scheduled for the OR for lap cholecystectomy. She is on IV antibiotics, Roceph in. GI prophylaxis, Protonix. Getting IV fluids for hydration. The patient was seen and case discus sed with Dr. Kwok. Dolly OKEEFE cc: [phone] TT: 12/13/2016 12:55:29 Confirmation # [id number] Dictation # [id number]
[2016-12-13] MEDS ORDERED: Neostigmine Methylsulfate 3mg/3ml Syringe IV ONE ×2 (13:13→13:33)
[2016-12-13] MEDS ORDERED: HYDROmorphone 0.5 mg/0.5 ml ISec IVP PRN (13:58)
--- NOTE | 2016-12-13 13:58 | PCM.SURG1 ---
Surgeon's Initial Post Op Note - Surgeon's Notes Surgeon: Elver [employer] Director: Cecilia Gamboa Pre-Operative Diagnosis: Acute cholecystitis Operative Findings: gallbladder inflamed Post-Operative Diagnosis: Acute Cholecystitis Operation Performed: Laparoscopic Cholecystectomy Specimen/Specimens Removed: Gallblader, cystic duct Estimated Blood Loss: EBL {In ML}: 20 Date of Surgery/Procedure: 12/13/16 Time of Surgery/Procedure: 12:30
[2016-12-13] MEDS ORDERED: Lactated Ringer's 1,000 ML IV SCH (14:00)
[2016-12-13] MEDS ORDERED: Vancomycin 1gm in NS 250ml 250 ML IVPB STA (20:47)
[2016-12-13] MEDS ORDERED: DiphenhydrAMINE 50 mg/ml Inj IVP STA (23:45)
--- NOTE | 2016-12-13 23:46 | CP.PCM.PN ---
Subjective - Date & Time of Evaluation Date of Evaluation: 12/13/16 Time of Evaluation: 23:46 - Subjective Subjective: Patient was seen because she complained of generalized itching after vancomycin bag finished.Has no rash , no sob, no wheezing. There was some relief in itching after she received benadryl that I had ordered. After receiving benadryl , she felt woozy, tingling in face, shaking, claimed that she has history of panic disorder and takes 1 mg of klonopin everyday.Has received klonopin 1 mg PO earlier.Also stated that she had burning sensation while passing urine, has history of UTI positive. Medical record was reviewed. This 36 year old woman was admitted with abdominal pain, leukocytosis, cholelithisis. Has PMH of depression,obesity,allergic to azithromycin+clarithromycin, Objective - Vital Signs/Intake and Output Vital Signs (last 24 hours): Temp Pulse Resp BP Pulse Ox 97.7 F 76 18 113/64 100 12/13/16 16:00 12/13/16 16:00 12/13/16 16:00 12/13/16 16:00 12/13/16 16:00 Intake and Output: 12/13/16 12/14/16 18:59 06:59 Intake Total 800 Balance 800 - Medications Medications: Current Medications Clonazepam (Klonopin) 1 mg PO HS BHARAT PRN Reason: Protocol Last Admin: 12/13/16 21:51 Dose: 1 mg Sodium Chloride (Sodium Chloride 0.9%) 1,000 mls @ 100 mls/hr IV .Q10H [facility] Last Admin: 12/13/16 03:23 Dose: 100 mls/hr Ceftriaxone Sodium (Rocephin 1 Gram Ivpb) 100 mls @ 100 mls/hr IVPB DAILY BHARAT PRN Reason: Protocol Last Admin: 12/13/16 09:26 Dose: 100 mls/hr Vancomycin HCl (Vancomycin 1gm) 250 mls @ 167 mls/hr IVPB Q12H BHARAT PRN Reason: Protocol Stop: 12/20/16 10:01 Ketorolac Tromethamine (Toradol) 15 mg IM Q6 BHARAT Stop: 12/18/16 22:13 Last Admin: 12/13/16 23:01 Dose: 15 mg Morphine Sulfate (Morphine) 2 mg IVP Q4 PRN PRN Reason: Pain, moderate (4-7) Morphine Sulfate (Morphine) 4 mg IVP Q4H PRN PRN Reason: Pain, severe (8-10) Ondansetron HCl (Zofran Inj) 4 mg IVP Q4H PRN PRN Reason: Nausea/Vomiting Last Admin: 12/13/16 14:20 Dose: 4 mg Pantoprazole Sodium (Protonix Inj) 40 mg IVP DAILY BHARAT Last Admin: 12/13/16 09:26 Dose: 40 mg - Labs Labs: 12/12/16 07:30 12/12/16 07:30 PT 9.8 Seconds (9.9-11.8) L 12/11/16 15:11 INR 0.91 (0.93-1.08) L 12/11/16 15:11 APTT 25.9 Seconds (23.7-30.8) 12/11/16 15:11 - Constitutional Appears: Well, No Acute Distress - Head Exam Head Exam: ATRAUMATIC, NORMAL INSPECTION, NORMOCEPHALIC Additional comments: Obese. - Eye Exam Eye Exam: Normal appearance - ENT Exam ENT Exam: Normal External Ear Exam - Neck Exam Neck Exam: Normal Inspection - Respiratory Exam Respiratory Exam: NORMAL BREATHING PATTERN - Cardiovascular Exam Cardiovascular Exam: absent: JVD - GI/Abdominal Exam GI & Abdominal Exam: absent: Distended - Rectal Exam Rectal Exam: Deferred - Extremities Exam Extremities Exam: Normal Inspection - Back Exam Back Exam: NORMAL INSPECTION - Neurological Exam Neurological Exam: Alert, Oriented x3 - Psychiatric Exam Psychiatric exam: Normal Affect, Normal Mood - Skin Skin Exam: Normal Color Assessment and Plan - Assessment and Plan (Free Text) Assessment: A/P :Possible reaction to Vancomycin. Cholelithiasis. Cholecystitis? Obesity. Depression. Hx panic disorder. Benadryl 25 mg IV was given. Later on, Klonopin 1 mg po was ordered. Urine was sent for U/A. Nurse will check with in AM prior to giving next dose of Vancomycin.
[2016-12-14 02:11] LABS: URINE BILIRUBIN NEGATIVE (NEGATIVE); URINE BLOOD SMALL (NEGATIVE); URINE GLUCOSE (UA) NEGATIVE (NEGATIVE); URINE KETONE NEGATIVE (NEGATIVE); URINE LEUKOCYTE ESTERASE NEGATIVE Leu/uL (NEGATIVE); URINE PROTEIN NEGATIVE mg/dL (<30 mg/dL); URINE UROBILINOGEN 0.2 E.U./dL (<1 E.U./dL)
[2016-12-14 02:17] LABS: URINE APPEARANCE CLEAR (CLEAR); URINE COLOR YELLOW (YELLOW)
[2016-12-14 02:22] LABS: URINE BACTERIA RARE (NEG); URINE WBC 0 - 2 /hpf (0-6)
[2016-12-14] MEDS: Sodium Chloride 0.9% 1,000 ML IV SCH (06:41)
[2016-12-14 09:34] LABS: ADD MANUAL DIFF? NO
[2016-12-14 09:44] LABS: BASO # 0.01 K/mm3 (0.0-2.0); BASO % 0.1 % (0.0-3.0); EOS % 0.1 % (1.5-5.0); GRAN % 67.1 % (50.0-68.0); HEMATOCRIT 30.7 % (36.0-48.0); LYMPH # 3.1 (1.2-3.4); LYMPH % 22.7 % (22.0-35.0); MEAN CELL VOLUME 93.3 fL (80.0-105.0); MEAN CORPUSCULAR HGB CONC 33.2 g/dl (31.0-37.0); MEAN PLATELET VOLUME 8.6 fl (7.0-11.0); MONO # 1.3 (0.1-0.6); PLATELET COUNT 270 10^3/uL (120.0-450.0); RED CELL DISTRIBUTION WIDTH 13.7 % (11.5-14.5); WHITE BLOOD COUNT 13.4 10^3/ul (4.5-11.0)
[2016-12-14 09:46] LABS: ALKALINE PHOSPHATASE 60 U/L (38-133); ALT/SGPT 36 U/L (7-56); AST/SGOT 27 U/L (15-39); BILIRUBIN,TOTAL 0.3 mg/dL (0.2-1.3); BLOOD UREA NITROGEN 8 mg/dL (7-21); CALCIUM 8.9 mg/dL (8.4-10.5); CARBON DIOXIDE 25 mmol/L (21-33); CHLORIDE 107 mmol/L (98-107); GFR AFRICAN-AMERICAN > 60; GLUCOSE,RANDOM 137 mg/dL (70-110); POTASSIUM 4.1 mmol/L (3.6-5.0); SODIUM 137 mmol/L (132-148); TOTAL PROTEIN 6.1 g/dL (5.8-8.3)
[2016-12-14] MEDS ORDERED: Vancomycin 1gm in NS 250ml 250 ML IVPB SCH ×2 (10:00)
--- NOTE | 2016-12-14 10:50 | CP.PCM.PN ---
Subjective - Date & Time of Evaluation Date of Evaluation: 12/14/16 Time of Evaluation: 10:45 - Subjective Subjective: SURGERY PROGRESS NOTE FOR DR. ANNE 36F seen and examined at bedside. Patient states her pain has reduced and her around her incisions. she is tolerating regular diet, denies nausea/vomiting, admits to flatus. Objective - Vital Signs/Intake and Output Vital Signs (last 24 hours): Temp Pulse Resp BP Pulse Ox 98.0 F 61 16 100/46 L 97 12/14/16 08:00 12/14/16 08:00 12/14/16 08:00 12/14/16 08:00 12/14/16 08:00 Intake and Output: 12/14/16 12/14/16 06:59 18:59 Intake Total 2650 Balance 2650 - Medications Medications: Current Medications Clonazepam (Klonopin) 1 mg PO HS BHARAT PRN Reason: Protocol Last Admin: 12/13/16 21:51 Dose: 1 mg Sodium Chloride (Sodium Chloride 0.9%) 1,000 mls @ 100 mls/hr IV .Q10H [facility] Last Admin: 12/14/16 06:41 Dose: 100 mls/hr Ceftriaxone Sodium (Rocephin 1 Gram Ivpb) 100 mls @ 100 mls/hr IVPB DAILY BHARAT PRN Reason: Protocol Last Admin: 12/13/16 09:26 Dose: 100 mls/hr Vancomycin HCl (Vancomycin 1gm) 250 mls @ 167 mls/hr IVPB Q12H [facility] PRN Reason: Protocol Stop: 12/20/16 10:01 Ketorolac Tromethamine (Toradol) 15 mg IM Q6 BHARAT Stop: 12/18/16 22:13 Last Admin: 12/14/16 06:42 Dose: 15 mg Morphine Sulfate (Morphine) 4 mg IVP Q4H PRN PRN Reason: Pain, severe (8-10) Ondansetron HCl (Zofran Inj) 4 mg IVP Q4H PRN PRN Reason: Nausea/Vomiting Last Admin: 12/13/16 14:20 Dose: 4 mg Pantoprazole Sodium (Protonix Inj) 40 mg IVP DAILY [facility] Last Admin: 12/14/16 09:36 Dose: 40 mg - Labs Labs: 12/14/16 09:30 12/14/16 09:30 PT 9.8 Seconds (9.9-11.8) L 12/11/16 15:11 INR 0.91 (0.93-1.08) L 12/11/16 15:11 APTT 25.9 Seconds (23.7-30.8) 12/11/16 15:11 - Constitutional Appears: Non-toxic, Toxic - Respiratory Exam Respiratory Exam: Clear to Ausculation Bilateral, NORMAL BREATHING PATTERN - Cardiovascular Exam Cardiovascular Exam: REGULAR RHYTHM, +S1, +S2 - GI/Abdominal Exam GI & Abdominal Exam: Soft, Tenderness. absent: Distended, Firm, Guarding, Rigid , Rebound Additional comments: incision CDI - Neurological Exam Neurological Exam: Alert, Awake - Psychiatric Exam Psychiatric exam: Anxious - Skin Skin Exam: Dry, Intact, Normal Color, Warm Assessment and Plan - Assessment and Plan (Free Text) Assessment: 36F s/p laparoscopic cholecystectomy POD1 Plan: - Pain management - monitor diet - encourage IS, Ambulation - Abx as per ID - f/u repeat blood culture discussed with Dr. Elver Brooks, PGY1
--- NOTE | 2016-12-14 11:58 | OP ---
PROCEDURE DATE: 12/13/2016 PREOPERATIVE DIAGNOSIS: Acute cholecystitis. POSTOPERATIVE DIAGNOSIS: Acute cholecystitis. OPERATION PERFORMED: Laparoscopic cholecystectomy, intraoperative cholangiogram. DESCRIPTION OF PROCEDURE: In the operating room, the patient was identified by name, number, procedu re, laterality, my didier and the consent. The timeout was successful. The bladder was decompressed p rior. The abdomen was prepped and draped with chlorhexidine. It was dried and after the successful timeout, the abdomen was accessed through a supraumbilical incision below the scars from the bar. Th is was dissected down to the fascia. The Veress needle was inserted. Two liters was insufflated to a pressure of about 10. The Visiport was placed and the operation proceeded. The gallbladder was mi ldly inflamed with very few adhesions. A xiphoid 5 and 2 lateral 5s were placed and drawing up on th e fundus and then the infundibulum, the end of the gallbladder was identified and sweeping down, expo sing what was initially believed to be a dilated cystic duct. Actually, it was 2 cm. Circumferentia lly, this was dissected inferiorly where it narrowed down nicely to the cystic duct. The cystic sheridan ry was long, circumferentially cleaned. Both it and the cystic duct were circumferentially cleaned. The view of safety was achieved with a free access to the clamp behind the cystic duct and artery. The peritoneum on either side was taken down and the cystic duct was doubly clipped and divided as wa s the cystic artery. The gallbladder then came off nicely off the liver bed using the Harmonic scalp el. It was placed in a bag and removed without dilation through the umbilicus. The abdomen was copi ously irrigated and dried. There was nothing untoward. The incision was closed with a 2-[address] d in the umbilicus with a needle. The subcutaneous tissue was closed with PDS and Dermabond. Th e patient was taken to recovery room after the CO2 had been removed in good condition and the sponge and needle counts declared correct. Jerad Raya MD cc: [phone] TT: 12/14/2016 11:42:48 tn
--- NOTE | 2016-12-14 12:02 | PN ---
DATE: 12/14/2016 Seen and examined at the bedside earlier today, this morning. She is status post laparoscopic cholec ystectomy. The patient reports positive flatus, belching. No bowel movement yet. Tolerated her reg ular diet so far. Denies any nausea, vomiting, fever, or chills. Does have some postop pain, but no acute distress. VITAL SIGNS: Temperature is 98.0, blood pressure is 100/46, her pulse is 61, respirations 16, 97% on room air. LABORATORIES: Today, WBC is 13.4, H and H is 10.2 and 30.7, platelets of 270. Her sodium is 137, K 4.1, BUN 8, creatinine 0.7. LFTs are within normal limits. She had blood cultures done, which is po sitive for gram cocci. PHYSICAL EXAMINATION: HEENT: Sclerae anicteric. NECK: Supple. CARDIAC: S1, S2. LUNG SOUNDS: Clear. ABDOMEN: With bowel sounds, soft. She does have some tenderness to her laparoscopic sites, but no r ebound or guarding. ASSESSMENT: This is a 36-year-old obese female who came in with abdominal pain, found to have acute cholecystitis, had positive HIDA scan, status post laparoscopic cholecystectomy, postop day #1. PLAN: She is now on regular diet as per surgery. Would recommend low-fat diet. She is on IV antibi otics. She is on ceftriaxone and going to be started on vancomycin. Continue gastrointestinal proph ylaxis. She is on Protonix 40 IV. Remains on IV fluids, gets morphine and Toradol for pain. She do es also have history of bipolar disorder and depression, is on Klonopin. We will continue to monitor LFTs, which are within normal limits. Her WBC count is also mildly elevated. She is on IV antibiot ics and is being followed by ID. The patient was seen and case discussed with Dr. Kwok. Dolly Garzaes MALDONADO cc: [phone] TT: 12/14/2016 12:01:24 Confirmation # [id number] Dictation # [id number]
[2016-12-14] MEDS: cefTRIAXone 1 gm 100 ML IVPB SCH (12:55)
--- NOTE | 2016-12-14 13:46 | CARD ---
APPROVED REPORT EXAM: Two-dimensional and M-mode echocardiogram with Doppler and color Doppler. INDICATION Infection:Rule out subacute bacterial endocarditis 2D DIMENSIONS Left Atrium (2D)3.4 (1.6-4.0cm)IVSd0.9 (0.7-1.1cm) LVDd4.1 (3.9-5.9cm)PWd0.9 (0.7-1.1cm) LVDs2.9 (2.5-4.0cm)FS (%) 27.8 % LVEF (%)54.5 (>50%) M-Mode DIMENSIONS Aortic Root2.20 (2.2-3.7cm)Aortic Cusp Exc.1.60 (1.5-2.0cm) Aortic Valve AoV Peak Qivpedgk942.0cm/Sharon Peak GR.9mmHg Mitral Valve MV E Yxxfmhvz806.0cm/sMV A Schtexud34.2cm/sE/A ratio2.0 TDI E/Lateral E'0.0E/Medial E'0.0 Tricuspid Valve TR Peak Nlmferip490ls/sRAP [id number] Peak Gr.22mmHg [id number] LEFT VENTRICLE The left ventricle is normal size. There is normal left ventricular wall thickness. The left ventricular function is normal. The left ventricular ejection fraction is within the normal range. There is normal LV segmental wall motion. The left ventricular diastolic function is normal. RIGHT VENTRICLE The right ventricle is normal size. There is normal right ventricular wall thickness. The right ventricular systolic function is normal. ATRIA The left atrium size is normal. The right atrium size is normal. AORTIC VALVE The aortic valve is normal in structure. No aortic regurgitation is present. MITRAL VALVE The mitral valve is normal in structure. Mitral regurgitation is trace. GREAT VESSELS The aortic root is normal in size. The IVC is normal in size and collapses >50% with inspiration. PERICARDIAL EFFUSION There is no pericardial effusion. <Conclusion> No vegitation seen The left ventricle is normal size. There is normal left ventricular wall thickness. The left ventricular function is normal. The left ventricular ejection fraction is within the normal range. There is normal LV segmental wall motion. The left ventricular diastolic function is normal.
--- NOTE | 2016-12-14 16:17 | NM ---
PROCEDURE: Three-phase bone scan HISTORY: r/o infection, left foot s/p bunion with plate COMPARISON: None TECHNIQUE: Radionuclide dose: 15.0 Tc99m MDP Site of administration: Indwelling intravenous line Technique: Three-phase FINDINGS: Flow component: Symmetrical flow to the visualize lower extremities Blood pool component: No abnormal accumulation of radionuclide visualized osseous structures. Delayed images at 3:00: No abnormal focal retention of radionuclide visualized osseous structures. Specific attention directed to the left foot. IMPRESSION: Negative study for acute osseous process.
--- NOTE | 2016-12-14 22:51 | CP.PCM.CON ---
History of Present Illness - History of Present Illness History of Present Illness: 36 year old female with PMH of nephrolithiasis, anxiety disorder, S/P left foot bunionectomy, obesity with BMI 30 was initially admitted for Abdominal pain, and was found to have cholelithiasis with associated acute cholecystitis and underwent laparoscopic cholecystecomy. As part of the work up blood cultures were drawn and it is now showing coagulase negative staph in 4 out of 4 bottles. Infectious Diseases consult is requested to further evaluate and manage. Currently the patient is not febrile, has some abdominal pain but it is better compared to previous days, no nausea or vomiting, no chest pain, no shortness of breath, no dysuria, no diarrhea. She does not complain of pain in the foot, no back pain. Review of Systems - Review of Systems All systems: reviewed and no additional remarkable complaints except (as per HPI ) Past Patient History - Infectious Disease Hx of Infectious Diseases: None - Tetanus Immunizations Tetanus Immunization: Unknown - Past Medical History & Family History Past Medical History?: Yes - Past Social History Smoking Status: Heavy Smoker > 10 Cigarettes Daily Alcohol: Occasional Drugs: Denies Home Situation {Lives}: With Family - CARDIAC Hx Pacemaker: No - PULMONARY Hx Respiratory Disorders: No - NEUROLOGICAL Hx Paralysis: No - HEENT Hx HEENT Problems: No - RENAL Hx Kidney Stones: Yes - ENDOCRINE/METABOLIC Hx Endocrine Disorders: No - HEMATOLOGICAL/ONCOLOGICAL Hx Blood Transfusions: No Hx Blood Transfusion Reaction: No - INTEGUMENTARY Hx Dermatological Problems: No - MUSCULOSKELETAL/RHEUMATOLOGICAL Hx Musculoskeletal Disorders: No - GASTROINTESTINAL Hx Gastrointestinal Disorders: No Hx Gall Bladder Disease: Yes (Cholelithiasis on recent Abdominal U/S) Hx Gastroesophageal Reflux: Yes - GENITOURINARY/GYNECOLOGICAL Hx Genitourinary Disorders: No - PSYCHIATRIC Hx Emotional Abuse: No Hx Physical Abuse: No Hx Substance Use: No - SURGICAL HISTORY Hx Surgeries: Yes (bunion surgery L ft has plate) - ANESTHESIA Hx Anesthesia Reactions: No Hx Malignant Hyperthermia: No Meds Allergies/Adverse Reactions: Allergies Allergy/AdvReac Type Severity Reaction Status Date / Time azithromycin [From Zithromax] Allergy ANAPHYLAXIS Verified 12/11/16 13:20 clarithromycin [From Biaxin] Allergy ANAPHYLAXIS Verified 12/11/16 13:20 - Medications Medications: Current Medications Clonazepam (Klonopin) 1 mg PO HS [facility] PRN Reason: Protocol Last Admin: 12/13/16 21:51 Dose: 1 mg Sodium Chloride (Sodium Chloride 0.9%) 1,000 mls @ 100 mls/hr IV .Q10H [facility] Last Admin: 12/13/16 03:23 Dose: 100 mls/hr Ceftriaxone Sodium (Rocephin 1 Gram Ivpb) 100 mls @ 100 mls/hr IVPB DAILY [facility] PRN Reason: Protocol Last Admin: 12/13/16 09:26 Dose: 100 mls/hr Vancomycin HCl (Vancomycin 1gm) 250 mls @ 167 mls/hr IVPB Q12H [facility] PRN Reason: Protocol Stop: 12/14/16 23:30 Ketorolac Tromethamine (Toradol) 15 mg IM Q6 [facility] Stop: 12/18/16 22:13 Morphine Sulfate (Morphine) 2 mg IVP Q4 PRN PRN Reason: Pain, moderate (4-7) Morphine Sulfate (Morphine) 4 mg IVP Q4H PRN PRN Reason: Pain, severe (8-10) Ondansetron HCl (Zofran Inj) 4 mg IVP Q4H PRN PRN Reason: Nausea/Vomiting Last Admin: 12/13/16 14:20 Dose: 4 mg Pantoprazole Sodium (Protonix Inj) 40 mg IVP DAILY [facility] Last Admin: 12/13/16 09:26 Dose: 40 mg Physical Exam - Constitutional Appears: Non-toxic, No Acute Distress - Head Exam Head Exam: NORMAL INSPECTION - ENT Exam ENT Exam: Mucous Membranes Moist - Neck Exam Neck exam: Negative for: Lymphadenopathy, Meningismus - Respiratory Exam Respiratory Exam: Decreased Breath Sounds - Cardiovascular Exam Cardiovascular Exam: +S1, +S2 - GI/Abdominal Exam GI & Abdominal Exam: Soft. absent: Tenderness - Extremities Exam Additional comments: no tenderness or swelling of the left foot where she had bunionectomy and placement of hardware Results - Vital Signs Recent Vital Signs: Last Vital Signs Temp 97.7 F 12/13/16 16:00 Pulse 76 12/13/16 16:00 Resp 18 12/13/16 16:00 BP 113/64 12/13/16 16:00 Pulse Ox 100 12/13/16 16:00 - Labs Result Diagrams: 12/14/16 09:30 12/14/16 09:30 Labs: Laboratory Results - last 24 hr 12/13/16 08:00 Blood Type A POSITIVE Antibody Screen Negative BBK History Checked Patient has bt Assessment & Plan - Assessment and Plan (Free Text) Plan: Assessment Methicillin-resistant coagulase negative staph bacteremia, source undetermined Sepsis secondary to acute cholecystitis S/P laparoscopic cholecystectomy POD #1 nephrolithiasis anxiety disorder S/P left foot bunionectomy obesity with BMI 30 Plan Continue Rocephin for now; started patient on Daptomycin and will repeat blood cx; Bone scan has been done which is negative Will follow clinically
[2016-12-15] MEDS: Sodium Chloride 0.9% 1,000 ML IV SCH ×2 (05:46→17:12)
[2016-12-15] MEDS: cefTRIAXone 1 gm 100 ML IVPB SCH (10:30)
--- NOTE | 2016-12-15 11:10 | CP.PCM.PN ---
Subjective - Date & Time of Evaluation Date of Evaluation: 12/15/16 Time of Evaluation: 11:08 - Subjective Subjective: SURGERY NOTE FOR DR. ANNE 36F seen and examined at bedside. Patient tolerating PO, denies N/V. Objective - Vital Signs/Intake and Output Vital Signs (last 24 hours): Temp Pulse Resp BP Pulse Ox 98.3 F 72 20 100/63 96 12/15/16 07:48 12/15/16 07:48 12/15/16 07:48 12/15/16 07:48 12/15/16 07:48 Intake and Output: 12/15/16 12/15/16 06:59 18:59 Intake Total 3120 Balance 3120 - Medications Medications: Current Medications Clonazepam (Klonopin) 1 mg PO HS [facility] PRN Reason: Protocol Last Admin: 12/14/16 22:00 Dose: 1 mg Sodium Chloride (Sodium Chloride 0.9%) 1,000 mls @ 100 mls/hr IV .Q10H [facility] Last Admin: 12/15/16 05:46 Dose: 100 mls/hr Ceftriaxone Sodium (Rocephin 1 Gram Ivpb) 100 mls @ 100 mls/hr IVPB DAILY [facility] PRN Reason: Protocol Last Admin: 12/15/16 10:30 Dose: 100 mls/hr Daptomycin 410 mg/ Sodium (Chloride) 100 mls @ 200 mls/hr IV Q24H [facility] PRN Reason: Protocol Stop: 12/19/16 16:31 Last Admin: 12/14/16 17:26 Dose: Not Given Ketorolac Tromethamine (Toradol) 15 mg IM Q6 [facility] Stop: 12/18/16 22:13 Last Admin: 12/15/16 05:46 Dose: 15 mg Ondansetron HCl (Zofran Inj) 4 mg IVP Q4H PRN PRN Reason: Nausea/Vomiting Last Admin: 12/13/16 14:20 Dose: 4 mg Pantoprazole Sodium (Protonix Inj) 40 mg IVP DAILY [facility] Last Admin: 12/15/16 10:29 Dose: 40 mg - Labs Labs: 12/14/16 09:30 12/14/16 09:30 PT 9.8 Seconds (9.9-11.8) L 12/11/16 15:11 INR 0.91 (0.93-1.08) L 12/11/16 15:11 APTT 25.9 Seconds (23.7-30.8) 12/11/16 15:11 - Constitutional Appears: Non-toxic, No Acute Distress - Head Exam Head Exam: ATRAUMATIC - Eye Exam Eye Exam: EOMI, PERRL - Respiratory Exam Respiratory Exam: Clear to Ausculation Bilateral, NORMAL BREATHING PATTERN - Cardiovascular Exam Cardiovascular Exam: REGULAR RHYTHM, +S1, +S2 - GI/Abdominal Exam GI & Abdominal Exam: Soft, Tenderness. absent: Distended, Firm, Guarding, Rigid , Rebound Additional comments: Incisions CDI. - Neurological Exam Neurological Exam: Alert, Awake - Skin Skin Exam: Dry, Intact, Normal Color, Warm Assessment and Plan - Assessment and Plan (Free Text) Assessment: 36F s/p laparoscopic cholecystectomy POD2 Plan: - Pain management - monitor diet - encourage IS, Ambulation - Abx as per ID discussed with Dr. Elver Brooks, PGY1
--- NOTE | 2016-12-16 00:05 | PN ---
DATE: 12/15/2016 This patient was seen and evaluated earlier today. The patient is tolerating the diet. On examination, temperature is 98, blood pressure is 123/58, pulse 55. HENT: Atraumatic. Anicteric. NECK: Supple. HEART: S1, S2 heard. LUNGS: Bilateral air entry present. ABDOMEN: Soft. There is mild tenderness present at the trocar site. EXTREMITIES: No edema, no cyanosis. NEUROLOGICALLY: Alert, oriented. Moves all the extremities. LABORATORY DATA: The hemoglobin is 10.2, hematocrit 30.7, WBC is 13.4, platelets 270, BUN 8, creatin ine 0.7. IMPRESSION: This 36-year-old patient with status post cholecystectomy found to have blood culture po sitive for Staph and also aureus. ID on consult. The patient was found to have MRSA coagulase negat mikey, but coagulase negative bacteremia, acute cholecystitis status post lap meeta. The patient has been now started on both daptomycin along with Rocephin. PLAN: To follow up clinically, then decide further workup based on the clinical course. Rashmi Kwok MD cc: [phone] TT: 12/16/2016 00:04:42 Confirmation # [id number] Dictation # [id number] jn
[2016-12-16 07:41] LABS: ADD MANUAL DIFF? NO
[2016-12-16 07:51] LABS: BASO # 0.02 K/mm3 (0.0-2.0); BASO % 0.2 % (0.0-3.0); EOS # 0.1 (0.0-0.7); EOS % 1.2 % (1.5-5.0); GRAN # 5.76 (1.4-6.5); GRAN % 55.4 % (50.0-68.0); HEMATOCRIT 28.1 % (36.0-48.0); LYMPH # 3.7 (1.2-3.4); LYMPH % 35.3 % (22.0-35.0); MEAN CELL VOLUME 92.7 fL (80.0-105.0); MEAN CORPUSCULAR HEMOGLOBIN 31.4 pg (25.0-35.0); MEAN CORPUSCULAR HGB CONC 33.8 g/dl (31.0-37.0); MEAN PLATELET VOLUME 8.6 fl (7.0-11.0); MONO # 0.8 (0.1-0.6); MONO % 7.9 % (1.0-6.0); PLATELET COUNT 257 10^3/uL (120.0-450.0); RED CELL DISTRIBUTION WIDTH 13.9 % (11.5-14.5); WHITE BLOOD COUNT 10.4 10^3/ul (4.5-11.0)
[2016-12-16 07:59] LABS: ALKALINE PHOSPHATASE 56 U/L (38-133); ALT/SGPT 35 U/L (7-56); AST/SGOT 24 U/L (15-39); BILIRUBIN,TOTAL 0.3 mg/dL (0.2-1.3); BLOOD UREA NITROGEN 9 mg/dL (7-21); CALCIUM 8.3 mg/dL (8.4-10.5); CARBON DIOXIDE 23 mmol/L (21-33); CHLORIDE 107 mmol/L (95-110); GFR AFRICAN-AMERICAN > 60; GLUCOSE,RANDOM 91 mg/dL (70-110); SODIUM 135 mmol/L (132-148); TOTAL PROTEIN 5.7 g/dL (5.8-8.3)
[2016-12-16] MEDS: cefTRIAXone 1 gm 100 ML IVPB SCH (10:27)
--- NOTE | 2016-12-16 10:57 | CP.PCM.PN ---
Subjective - Date & Time of Evaluation Date of Evaluation: 12/16/16 Time of Evaluation: 07:20 - Subjective Subjective: General Surgery progress note for Dr. Raya Pt s/e at bedside this AM. NAEO. Patient reports some LLQ pain associated with constipation. Patient reports a small, soft BM overnight but feels like she needs to have another BM. Offered a stool softener but patient requested prune juice, which her family member will bring from home. Denies nausea, vomiting, fevers, chills, SOB, chest pain, and leg swelling/pain. Is tolerating her diet well. Objective - Vital Signs/Intake and Output Vital Signs (last 24 hours): Temp Pulse Resp BP Pulse Ox 98.6 F 64 16 135/76 100 12/16/16 07:53 12/16/16 07:53 12/16/16 08:00 12/16/16 07:53 12/16/16 07:53 Intake and Output: 12/16/16 12/16/16 06:59 18:59 Intake Total 2220 Balance 2220 - Medications Medications: Current Medications Clonazepam (Klonopin) 1 mg PO BID PRN; Protocol PRN Reason: Anxiety Last Admin: 12/15/16 22:57 Dose: 1 mg Sodium Chloride (Sodium Chloride 0.9%) 1,000 mls @ 100 mls/hr IV .Q10H [facility] Last Admin: 12/15/16 17:12 Dose: 100 mls/hr Ceftriaxone Sodium (Rocephin 1 Gram Ivpb) 100 mls @ 100 mls/hr IVPB DAILY [facility] PRN Reason: Protocol Last Admin: 12/16/16 10:27 Dose: 100 mls/hr Daptomycin 410 mg/ Sodium (Chloride) 100 mls @ 200 mls/hr IV Q24H [facility] PRN Reason: Protocol Stop: 12/19/16 16:31 Last Admin: 12/15/16 17:09 Dose: 200 mls/hr Ketorolac Tromethamine (Toradol) 15 mg IVP Q6 PRN PRN Reason: Pain, moderate (4-7) Stop: 12/18/16 22:13 Ondansetron HCl (Zofran Inj) 4 mg IVP Q4H PRN PRN Reason: Nausea/Vomiting Last Admin: 12/13/16 14:20 Dose: 4 mg Pantoprazole Sodium (Protonix Inj) 40 mg IVP DAILY [facility] Last Admin: 12/16/16 10:27 Dose: 40 mg - Labs Labs: 12/16/16 07:40 12/16/16 07:40 PT 9.8 Seconds (9.9-11.8) L 12/11/16 15:11 INR 0.91 (0.93-1.08) L 12/11/16 15:11 APTT 25.9 Seconds (23.7-30.8) 12/11/16 15:11 - Constitutional Appears: Well, Non-toxic, No Acute Distress - Head Exam Head Exam: ATRAUMATIC, NORMOCEPHALIC - Eye Exam Eye Exam: Normal appearance. absent: Conjunctival injection, Scleral icterus - ENT Exam ENT Exam: Mucous Membranes Moist, Normal Oropharynx - Respiratory Exam Respiratory Exam: NORMAL BREATHING PATTERN. absent: Accessory Muscle Use, Respiratory Distress - GI/Abdominal Exam GI & Abdominal Exam: Distended (mild distension), Soft, Tenderness (tenderness to deep palpation in the LLQ) Additional comments: Surgical incisions healing well - Extremities Exam Extremities Exam: absent: Calf Tenderness, Pedal Edema, Tenderness - Neurological Exam Neurological Exam: Alert, Awake, Oriented x3 - Psychiatric Exam Psychiatric exam: Normal Affect, Normal Mood - Skin Skin Exam: Dry, Intact, Normal Color, Warm Assessment and Plan - Assessment and Plan (Free Text) Assessment: 36F s/p laparoscopic cholecystectomy POD3 Plan: - Pain management - monitor diet tolerance - Colace PRN for constipation - encourage IS, Ambulation - Abx as per ID - Blood cultures: NGTDx24 hours. Follow up results discussed with Dr. Elver Nicholson, PGY1
[2016-12-16] MEDS ORDERED: Magnesium Hydroxide Susp 30 ml UD PO ONE (13:53)
[2016-12-16] MEDS: Sodium Chloride 0.9% 1,000 ML IV SCH ×2 (14:54→14:55)
--- NOTE | 2016-12-16 16:04 | PN ---
DATE: 12/14/2016 The patient is medically stable. No chest pain, no short of breath. The patient does have gram-posi tive cocci in the blood cultures. ID consult was put in, Dr. Quintanilla. PHYSICAL EXAMINATION: VITAL SIGNS: Temperature is 98, heart rate 61, blood pressure is 118/75, respirations 16, saturation 97%. HEAD AND NECK: Normal. No JVD, no thyromegaly. CHEST: Clear, good air entry. CARDIAC: First sound, second sound normal. ABDOMEN: Soft. There is tenderness at the site of surgery, right upper quadrant. EXTREMITIES: No edema. NEUROLOGIC: Normal. LABORATORY STUDIES: On 12/14, white count 13.4, hemoglobin 10.2, hematocrit 30.7, platelets 270. Evon hina shows sodium 137, potassium 4.1, chloride 107, bicarbonate 25, BUN 8, creatinine 0.7, blood smith gar 137. Liver function test is normal. IMPRESSION: 1. Gram-positive . Spoke with ID consult. We will order bone scan. The patient does have a m etal prosthesis in her right toes. We will order bone scan to rule out underlying infection at that area, although patient clinically does not complain of any toe pain. Also, will get an echocardiogra phy and repeat blood cultures. 2. Status post laparoscopic cholecystectomy, seems doing well, tolerating liquid diet. Continue cur rent antibiotics for now and pain medications. 3. Chronic anxiety, depression. Klonopin 1 mg at night. PLAN: Continue current medication, Toradol, Rocephin IV, Klonopin p.r.n. and I see patient got vanco mycin 1 gram q. 12 x 2 doses and ID will probably change antibiotic to once a day drug. Continue cur rent treatment. Follow up clinically. Malachi Frias MD cc: [phone] TT: 12/16/2016 16:03:24 Confirmation # [id number] Dictation # [id number] en
--- NOTE | 2016-12-16 16:06 | PN ---
DATE: 12/15/2016 A 36-year-old. The patient walking around with IV fluids running. No chest pain, no short of breath , but she is still on IV antibiotics. PHYSICAL EXAMINATION: VITAL SIGNS: Temperature is 98.3, heart rate 72, blood pressure 132/79, respirations 20, saturation 97% on room air. HEAD AND NECK: Normal. No JVD, no thyromegaly. CHEST: Clear, good air entry. CARDIAC: First sound, second sound normal. ABDOMEN: Soft, obese. Tender right upper quadrant. EXTREMITIES: No edema. NEUROLOGIC: Normal. LABORATORY STUDIES: Will order in the morning. IMPRESSION AND PLAN: 1. Gram-positive . Bone scan negative. Echocardiography, good left ventricular function, no v alvular lesions. Continue daptomycin IV for now. Will discuss further with ID. 2. Status post laparoscopic cholecystectomy. Continue Rocephin 1 gram daily. 3. Chronic anxiety. The patient seems more anxious. We will give her Klonopin 1 mg b.i.d. p.r.n. Continue pain medicine p.r.n. also. Follow up clinically. Continue IV fluid, IV Protonix, Zofran p. r.n. Malachi Frias MD cc: [phone] TT: 12/16/2016 16:05:25 Confirmation # [id number] Dictation # [id number] en
--- NOTE | 2016-12-16 16:07 | CP.PCM.PN ---
Subjective - Date & Time of Evaluation Date of Evaluation: 12/16/16 Time of Evaluation: 14:40 - Subjective Subjective: Patient is comfortable in bed, not in distress, less abdominal pain, no fevers overnight. Objective - Vital Signs/Intake and Output Vital Signs (last 24 hours): Temp Pulse Resp BP Pulse Ox 98.6 F 64 16 135/76 100 12/16/16 07:53 12/16/16 07:53 12/16/16 08:00 12/16/16 07:53 12/16/16 07:53 Intake and Output: 12/16/16 12/16/16 06:59 18:59 Intake Total 2220 620 Balance 2220 620 - Medications Medications: Current Medications Clonazepam (Klonopin) 1 mg PO BID PRN; Protocol PRN Reason: Anxiety Last Admin: 12/15/16 22:57 Dose: 1 mg Sodium Chloride (Sodium Chloride 0.9%) 1,000 mls @ 100 mls/hr IV .Q10H [facility] Last Admin: 12/16/16 14:55 Dose: 100 mls/hr Ceftriaxone Sodium (Rocephin 1 Gram Ivpb) 100 mls @ 100 mls/hr IVPB DAILY [facility] PRN Reason: Protocol Last Admin: 12/16/16 10:27 Dose: 100 mls/hr Daptomycin 410 mg/ Sodium (Chloride) 100 mls @ 200 mls/hr IV Q24H [facility] PRN Reason: Protocol Stop: 12/19/16 16:31 Last Admin: 12/15/16 17:09 Dose: 200 mls/hr Ketorolac Tromethamine (Toradol) 15 mg IVP Q6 PRN PRN Reason: Pain, moderate (4-7) Stop: 12/18/16 22:13 Ondansetron HCl (Zofran Inj) 4 mg IVP Q4H PRN PRN Reason: Nausea/Vomiting Last Admin: 12/13/16 14:20 Dose: 4 mg Pantoprazole Sodium (Protonix Inj) 40 mg IVP DAILY [facility] Last Admin: 12/16/16 10:27 Dose: 40 mg - Labs Labs: 12/16/16 07:40 12/16/16 07:40 PT 9.8 Seconds (9.9-11.8) L 12/11/16 15:11 INR 0.91 (0.93-1.08) L 12/11/16 15:11 APTT 25.9 Seconds (23.7-30.8) 12/11/16 15:11 - Constitutional Appears: Non-toxic, No Acute Distress - Head Exam Head Exam: NORMAL INSPECTION - ENT Exam ENT Exam: Mucous Membranes Moist - Neck Exam Neck Exam: absent: Lymphadenopathy, Meningismus - Respiratory Exam Respiratory Exam: Decreased Breath Sounds - Cardiovascular Exam Cardiovascular Exam: +S1, +S2 - GI/Abdominal Exam GI & Abdominal Exam: Soft. absent: Tenderness Assessment and Plan - Assessment and Plan (Free Text) Plan: Assessment Methicillin-resistant coagulase negative staph bacteremia, source undetermined Sepsis secondary to acute cholecystitis S/P laparoscopic cholecystectomy POD #3 nephrolithiasis anxiety disorder S/P left foot bunionectomy obesity with BMI 30 Plan Continue Daptomycin (since the patient had allergic reaction to Vancomycin; repeat blood cx is negative x 1 day; Bone scan and 2D echo have been done and are negative Will continue to follow clinically
--- NOTE | 2016-12-17 05:37 | PN ---
DATE: 12/16/2016 SUBJECTIVE: This patient was seen and evaluated earlier today. The patient has no specific GI compl aints, tolerating the diet. PHYSICAL EXAMINATION: VITAL SIGNS: Temperature is 98, pulse of 103, blood pressure is 130/71. HEENT: Atraumatic, anicteric. NECK: Supple. HEART: S1, S2 heard. LUNGS: Bilateral normal vesicular breath sounds. ABDOMEN: Soft. There is mild tenderness at the surgical incision site. LABORATORY DATA: is 10.4, hemoglobin 9.5, hematocrit 28.1, 257. BUN 9, creatinine 0.7, and LFTs essentially unremarkable. IMPRESSION: This 36-year-old patient is status post cholecystectomy for acute cholecystitis. Found to have a positive blood culture, negative. negative. The patient given antibiotics, __ ___ as per infectious disease. LFTs normal. Tolerating diet. Antibiotic course as per infectious d isease. Thank you very much for allowing us to participate in the care of the patient. Rashmi Kwok MD cc: [phone] TT: 12/17/2016 05:36:57 Confirmation # [id number] Dictation # [id number] tn
[2016-12-17 07:17] LABS: HEMATOCRIT 29.3 % (36.0-48.0); MEAN CELL VOLUME 92.7 fL (80.0-105.0); MEAN CORPUSCULAR HEMOGLOBIN 31.3 pg (25.0-35.0); MEAN CORPUSCULAR HGB CONC 33.8 g/dl (31.0-37.0); RED CELL DISTRIBUTION WIDTH 13.7 % (11.5-14.5); WHITE BLOOD COUNT 12.2 10^3/ul (4.5-11.0)
[2016-12-17 07:20] LABS: ALB/GLOB RATIO 1.1 (1.1-1.8); ALKALINE PHOSPHATASE 65 U/L (38-133); ALT/SGPT 45 U/L (7-56); AST/SGOT 30 U/L (15-39); BILIRUBIN,TOTAL 0.4 mg/dL (0.2-1.3); BLOOD UREA NITROGEN 12 mg/dL (7-21); CALCIUM 8.3 mg/dL (8.4-10.5); CARBON DIOXIDE 25 mmol/L (21-33); CHLORIDE 106 mmol/L (98-107); GFR AFRICAN-AMERICAN > 60; GLUCOSE,RANDOM 92 mg/dL (70-110); POTASSIUM 4.2 mmol/L (3.6-5.0); SODIUM 136 mmol/L (132-148); TOTAL PROTEIN 6.1 g/dL (5.8-8.3)
[2016-12-17 08:39] VITALS: RESP 16
[2016-12-17] MEDS: Sodium Chloride 0.9% 1,000 ML IV SCH (12:05)
--- NOTE | 2016-12-17 14:18 | CP.PCM.PN ---
Subjective - Date & Time of Evaluation Date of Evaluation: 12/17/16 Time of Evaluation: 07:30 - Subjective Subjective: Surgery: Dr. Raya Pt seen and examined. No acute overnight events. States she's feeling well and denies abdominal pain. Tolerating regular diet. Admits to BM. Denies N/V, F/C. Objective - Vital Signs/Intake and Output Vital Signs (last 24 hours): Temp Pulse Resp BP Pulse Ox 97.9 F 71 16 133/63 98 12/17/16 08:00 12/17/16 08:00 12/17/16 08:00 12/17/16 08:00 12/17/16 08:00 Intake and Output: 12/17/16 12/17/16 06:59 18:59 Intake Total 1020 Balance 1020 - Medications Medications: Current Medications Clonazepam (Klonopin) 1 mg PO BID PRN; Protocol PRN Reason: Anxiety Last Admin: 12/16/16 22:32 Dose: 1 mg Sodium Chloride (Sodium Chloride 0.9%) 1,000 mls @ 100 mls/hr IV .Q10H [facility] Last Admin: 12/17/16 12:05 Dose: 100 mls/hr Daptomycin 410 mg/ Sodium (Chloride) 100 mls @ 200 mls/hr IV Q24H [facility] PRN Reason: Protocol Stop: 12/19/16 16:31 Last Admin: 12/16/16 16:19 Dose: 200 mls/hr Ketorolac Tromethamine (Toradol) 15 mg IVP Q6 PRN PRN Reason: Pain, moderate (4-7) Stop: 12/18/16 22:13 Last Admin: 12/17/16 05:04 Dose: 15 mg Ondansetron HCl (Zofran Inj) 4 mg IVP Q4H PRN PRN Reason: Nausea/Vomiting Last Admin: 12/13/16 14:20 Dose: 4 mg Pantoprazole Sodium (Protonix Inj) 40 mg IVP DAILY [facility] Last Admin: 12/17/16 10:31 Dose: 40 mg - Labs Labs: 12/17/16 06:00 12/17/16 06:00 PT 9.8 Seconds (9.9-11.8) L 12/11/16 15:11 INR 0.91 (0.93-1.08) L 12/11/16 15:11 APTT 25.9 Seconds (23.7-30.8) 12/11/16 15:11 - Constitutional Appears: Well, No Acute Distress - Head Exam Head Exam: ATRAUMATIC, NORMOCEPHALIC - Eye Exam Eye Exam: Normal appearance - ENT Exam ENT Exam: Mucous Membranes Moist - Respiratory Exam Respiratory Exam: NORMAL BREATHING PATTERN - Cardiovascular Exam Cardiovascular Exam: RRR - GI/Abdominal Exam GI & Abdominal Exam: Soft. absent: Distended, Tenderness Additional comments: Incisions C/D/I - Neurological Exam Neurological Exam: Alert, Awake, Oriented x3 - Skin Skin Exam: Dry, Intact, Warm Assessment and Plan - Assessment and Plan (Free Text) Assessment: 36F s/p lap meeta; POD# 4 Plan: - clear for DC from surgical standpoint - f/u with Dr. Raya in 1 week - d/w Dr. Elver Gamboa, PGY-2 Surgery
--- NOTE | 2016-12-17 14:26 | PN ---
DATE: 12/17/2016 Seen and examined at the bedside earlier today. Denies any nausea, vomiting, or abdominal pain. On occasion, may have postop pain when area is pressed otherwise has soreness. No fever, chills. Having bowel movements. No diarrhea or any reports of blood. Tolerating oral intake. VITAL SIGNS: Temperature is 97.9, blood pressure 133/63, pulse 71, respirations 16, 98% on room air. LABORATORIES: WBC is 12.2, H and H is 9.9 and 29.3, platelets is 286. Sodium 136, K is 4.2, BUN is 12, creatinine 0.7. LFTs are within normal limits. PHYSICAL EXAMINATION: HEENT: Sclerae anicteric. NECK: Supple. CARDIAC: S1, S2. LUNGS: Clear. ABDOMEN: With bowel sounds, soft with surgical incisional site mild tenderness , but no rebound or guarding. The incisional sites are dry and intact. ASSESSMENT: This is a 36-year-old, status post cholecystectomy for acute cholecystitis. The patient was found to have positive blood cultures, positive for coagulase negative Staphylococcus. She had repeat blood cultures on 12/15 that was negative x 2. Obesity. Other comorbidities are depression and bipolar disorder. PLAN: Discussed with patient regarding low fat diet. Consume regular low-fat diet. She is on IV antibiotics with daptomycin as per ID. Continue gastrointestinal prophylaxis, Protonix. She is also receiving IV fluids. The plan for her is to go to TCU for antibiotic therapy for additional 7 days. ADDENDUM TO PATHOLOGY: Gallbladder with acute on chronic cholecystitis with cholelithiasis. Case discussed with Dr. Frias and nursing staff. The patient was seen and discussed with Dr. Kwok. Dolly OKEEFE cc: [phone] TT: 12/17/2016 14:25:40 Confirmation # [id number] Dictation # [id number] en MTDD
--- NOTE | 2016-12-17 15:31 | PN ---
DATE: 12/17/2016 ADDENDUM This is an addendum to the GI progress report dictated by Dolly Alberto NP. The patient was seen and evaluated earlier, discussed with Dr. Frias. This is a 36-year-old patient with status post laparoscopic cholecystectomy. The patient did have a staph methicillin-resistant coagulase negative bacteremia. Recommended daptomycin. ____ continue th e antibiotic course as per ID. LFTs remain stable. Thank you very much for allowing us to participate in the care of the patient. Rashmi Kwok MD cc: [phone] TT: 12/17/2016 15:30:18 Confirmation # [id number] Dictation # [id number] sn
[2016-12-17 16:06] VITALS: BP 136/86; PULSE 76; TEMP 98.7; O2SAT 96
--- NOTE | 2016-12-18 08:29 | PN ---
DATE: 12/17/2016 The patient was seen earlier today in room 574, bed 2. She is doing better. No fevers and no chills . PHYSICAL EXAMINATION: VITAL SIGNS: Temperature of 98, blood pressure is 130/60, respiratory rate of 16. HEENT: Unremarkable. NECK: Supple. LUNGS: Have decreased breath sounds. HEART: Normal S1, S2. ABDOMEN: Soft, nontender. LABORATORY DATA: Reveals a white count of 12,200, hemoglobin of 9, platelets of 286. Chemistries re veal the BUN of 12, creatinine of 0.7. Urinalysis is noted. Microbiology reveals the patient's coag -negative Staph in 2 sets of blood cultures on admission. Repeat blood cultures on the 8th were no g rowth. Currently, the patient is on daptomycin. ASSESSMENT AND PLAN: A 36-year-old female with resistant coagulase-negative Staphylococcus bacteremi a in 2 bottles, source unclear. The patient also with sepsis secondary to acute cholecystitis, statu s post laparoscopic cholecystectomy postop day #4 in addition with nephrolithiasis, anxiety and a lef t foot bunionectomy with obesity with a BMI of 30 on daptomycin. The patient had an allergic reactio n on vancomycin and a bone scan which was negative, a 2D echo which was also negative and repeat cult ures from the 8th are negative. Today is day #3 of 7-10 days of daptomycin. Would check the CPK.. León Delgadillo MD cc: 350 TT: 12/17/2016 18:45:06 Confirmation # [id number] Dictation # [id number] mn
--- NOTE | 2016-12-18 09:49 | DS ---
The patient admitted with abdominal pain, found to have biliary stones, positive HIDA scan. She rece ived laparoscopic cholecystectomy by Dr. Raya. The patient did well. She noted gram-positive radha ci in the blood. An echocardiogram was negative. Bone scan for any evidence of infection in hardwar e in her right foot was negative. The patient was seen by ID consult, Dr. Quintanilla; recommends 1 week o f IV antibiotics. The patient seems comfortable, stable. No distress. She is otherwise doing great . PHYSICAL EXAMINATION: VITAL SIGNS: Temperature 98.7, heart rate 76, blood pressure 136/86, respirations 16, saturation 98% on room air. HEAD AND NECK: Normal. No JVD, no thyromegaly. CHEST: Clear, good entry. CARDIAC: First and second sounds are normal. ABDOMEN: Soft. There is tenderness in the right upper quadrant at site of surgery. EXTREMITIES: No edema. NEUROLOGIC: Normal. LABORATORY DATA: White count 12.2, hemoglobin 9.9, hematocrit 29.3, platelets 286. Chemistry shows sodium 136, potassium 4.2, chloride 106, bicarbonate 25, BUN 12, creatinine 0.8. Liver function test is normal. DISCHARGE DIAGNOSES: 1. Abdominal pain due to acute cholecystitis. 2. Status post laparoscopic cholecystectomy. 3. Gram-positive bacteremia. 4. History of chronic anxiety and panic disorder. 5. Obesity. PLAN: Continue current IV antibiotic of daptomycin and continue Klonopin. Follow up. The patient w ill be discharged to TCU for continuation of IV antibiotic and physical therapy. The patient seems e ating okay now. Would advance her diet as tolerated and continue current treatment. Malachi Frias MD cc: 223 TT: 12/18/2016 09:49:17 wv
--- NOTE | 2016-12-18 16:47 | PQF SEPSIS ---
12/18/16 Dr. Frias, Sepsis secondary to acute cholecystitis is documented on consult of 12/14, progress note of 12/16, and progress note of 12/17. Do you agree, disagree, other with this diagnosis? If you agree, was sepsis present on admission? Thank you. Clarification of your documentation is requested to better reflect the severity of illness and intensity of treatment of your patient. Indicators present [] Temp < 96.8 or > 100.4 [x] WBC count > 12,000/mm3 or <000/mm3 or 10% immature neutrophils [] Heart Rate > 90 [] Respiratory Rate > 20 [] Fever or hypothermia [] Chills [x] Positive blood cultures [] Hypotension [] Metabolic acidosis (Elevated lactate level, anion gap or reduced blood pH) [] Acute confusion /Altered Mental Status [] Shock [] Other: [] Location in the medical record that reflects the above clinical findings: [] Treatment Provided: [] PHYSICIAN'S RESPONSE Based on your medical judgment of the clinical indicators outlined above, are you treating this patient for a known or suspected: [x] Sepsis / Septicemia Please specify organism if known [gram positive cocci] [] SIRS (Systemic Inflammatory Response Syndrome) [] Severe Sepsis (Sepsis with Associated Organ Dysfunction) [] Fever of Unknown Origin [] Other, please indicate: [] [] If Unable to Determine, please check the box, sign and date. Present On Admission (POA) Indicator: [x] Present at the time of admission [] Not present at the time of admission [] Clinically Undetermined In responding to this query, please exercise your independent professional judgment. The fact that a question is asked does not imply that any particular answer is desired or expected. Thank you for your clarification on this documentation. If you have any questions please call:[ ] * Thank you, [ ] servomechanism assembler [email or web address]
== END 2016-12-17 19:01 | DRG 854 ==
LOC: ED 12:58 → ERH 17:59 → 5RSO 21:26
PROVIDERS: ADMIT Internal Medicine; ATTEND Internal Medicine
PROC: 0FT44ZZ Resection of Gallbladder, Percutaneous Endoscopic Approach (ICD-10-PCS; principal; 2016-12-14)
PROC: BF03YZZ Plain Radiography of Gallbladder and Bile Ducts using Other Contrast (ICD-10-PCS; 2016-12-14)
DX: A41.89 Other specified sepsis (principal); K80.00 Calculus of gallbladder with acute cholecystitis without obstruction; R78.81 Bacteremia; E66.9 Obesity, unspecified; F17.200 Nicotine dependence, unspecified, uncomplicated; F31.9 Bipolar disorder, unspecified; F41.0 Panic disorder [episodic paroxysmal anxiety]; F43.10 Post-traumatic stress disorder, unspecified; K21.9 Gastro-esophageal reflux disease without esophagitis; K59.00 Constipation, unspecified; L29.9 Pruritus, unspecified; Z68.30 Body mass index [BMI] 30.0-30.9, adult; Z87.440 Personal history of urinary (tract) infections; Z87.442 Personal history of urinary calculi; Z88.1 Allergy status to other antibiotic agents; Z87.892 Personal history of anaphylaxis; Z90.710 Acquired absence of both cervix and uterus; Z16.39 Resistance to other specified antimicrobial drug

== ENCOUNTER 2016-12-17 19:01 | Inpatient (IN) | payer OTHER ==
[2016-12-17 20:28] VITALS: BMI 36.9
[2016-12-18] MEDS: Pantoprazole 40mg/100ml IVPB 100 ML IVPB SCH (05:57)
[2016-12-18 07:44] LABS: ADD MANUAL DIFF? NO
[2016-12-18 08:01] LABS: BASO # 0.02 K/mm3 (0.0-2.0); BASO % 0.2 % (0.0-3.0); EOS # 0.2 (0.0-0.7); EOS % 1.3 % (1.5-5.0); GRAN # 7.46 (1.4-6.5); GRAN % 63.9 % (50.0-68.0); HEMATOCRIT 31.5 % (36.0-48.0); LYMPH # 3.2 (1.2-3.4); LYMPH % 27.1 % (22.0-35.0); MEAN CELL VOLUME 92.4 fL (80.0-105.0); MEAN CORPUSCULAR HEMOGLOBIN 31.1 pg (25.0-35.0); MEAN CORPUSCULAR HGB CONC 33.7 g/dl (31.0-37.0); MEAN PLATELET VOLUME 8.9 fl (7.0-11.0); MONO # 0.9 (0.1-0.6); MONO % 7.5 % (1.0-6.0); PLATELET COUNT 320 10^3/uL (120.0-450.0); RED CELL DISTRIBUTION WIDTH 13.9 % (11.5-14.5); WHITE BLOOD COUNT 11.7 10^3/ul (4.5-11.0)
[2016-12-18 08:24] LABS: BLOOD UREA NITROGEN 10 mg/dL (7-21); CALCIUM 8.6 mg/dL (8.4-10.5); CARBON DIOXIDE 25 mmol/L (21-33); CHLORIDE 104 mmol/L (95-110); GFR AFRICAN-AMERICAN > 60; GLUCOSE,RANDOM 91 mg/dL (70-110); SODIUM 137 mmol/L (132-148)
--- NOTE | 2016-12-18 12:17 | PN ---
DATE: 12/18/2016 SUBJECTIVE: Seen and examined at the bedside earlier today. She is moving her bowels. Denies any nausea, vomiting, or abdominal pain. No reports of any overt GI bleed. Denies any nausea, vomiting, shortness of breath, chest pain. She is now in TCU for IV antibiotics. OBJECTIVE: VITAL SIGNS: Last temperature is 97.6, blood pressure 115/72, pulse 59, respirations 18. LABORATORY DATA: Today, WBC is 11.7, H and H are 10.6 and 31.5, platelets are 320. Sodium 137, K 4.0, BUN 10, creatinine is 0.7. PHYSICAL EXAMINATION: HEENT: Sclerae anicteric. NECK: Supple. CARDIAC: S1, S2. CHEST: Lung sounds are clear. ABDOMEN: With bowel sounds. Soft, obese, not distended, nontender. No rebound or guarding. Her laparoscopic sites are dry and intact. No erythema. ASSESSMENT: Status post laparoscopic cholecystectomy for acute cholecystitis and found to have positive blood cultures for coagulase-negative staphylococcus , history of bipolar disorder and depression with obesity. PLAN: She is in TCU receiving IV antibiotic therapy. Continue diet as tolerated. She is on regular diet, will add low fat. Encourage ambulation. She is on IV antibiotics of daptomycin. She is on Protonix and on her Klonopin p.r.n. as per ID. She is also being followed by surgery. She is doing well from GI standpoint, no planned interventions, will currently sign off, please reconsult as needed. The patient was seen and case discussed with Dr. Kwok. Dolly Dolly MALDONADO cc: 451 TT: 12/18/2016 12:17:09 Confirmation # [id number] Dictation # [id number] adela GILBERT
[2016-12-18] MEDS ORDERED: DAPTOmycin 500 MG in Sodium Chloride 0.9% 100 ML IV SCH (13:45)
--- NOTE | 2016-12-18 14:11 | CON ---
DATE: 12/18/2016 The patient seen earlier today in room 322. CHIEF COMPLAINT: Weakness x several days. HISTORY OF PRESENT ILLNESS: This is a 36-year-old female with past medical history significant for n ephrolithiasis, anxiety, obesity with a BMI of 31, who was admitted with abdominal pain, underwent st atus post laparoscopic cholecystectomy and blood work was done on the acute care which revealed a pos itive blood culture 2 bottles for a coag-negative staph. Infectious disease consultation was request ed. The patient had no fevers and chills in the hospital. She had some chills at home. Now doing b trell. No abdominal pain, diarrhea or constipation. No bright red blood per rectum, no melena. PAST MEDICAL HISTORY: Significant for nephrolithiasis, anxiety, obesity with a BMI of 31 and psychia tric, posttraumatic stress disorder and anemia. PAST SURGICAL HISTORY: Significant for a left foot surgery which has a plate. The patient also with recent lap meeta on the acute care side and x 2. MEDICATIONS: Reviewed. ALLERGIES: THE PATIENT IS ALLERGIC TO VANCOMYCIN, CLARITHROMYCIN, AND AZITHROMYCIN. PHYSICAL EXAMINATION: GENERAL: The patient is seen in bed, no acute distress, was seen earlier today in TCU. VITAL SIGNS: Temperature of 98, blood pressure is 116/70, respiratory rate of 18, heart rate of 62. HEENT: Unremarkable. NECK: Supple. LUNGS: Have decreased breath sounds. HEART: Normal S1, S2. ABDOMEN: Soft, nontender, no organomegaly, no rebound, no guarding. LABORATORY EXAMINATION: Reveals a white count of 11,700, hemoglobin of 10. Chemistries reveal the B UN of 10, creatinine of 0.7. Urinalysis is noted and serology is HIV is negative. RPR is negative. Hep B is negative. Microbiology reveals the repeat blood cultures from 12/15 are negative. The initi al ones 2 bottles are positive for coag negative staph. The urine cultures are negative. ASSESSMENT AND PLAN: A 36-year-old female with resistant coagulase-negative staph bacteremia, had a bone scan which was negative as far as the foot was concerned and 2 bottles were positive. Also had an echo which was negative and status post laparoscopic cholecystectomy, postoperative day #5 and wit h a history of depression, anxiety history of obesity and left foot surgery, on daptomycin SINCE THE PATIENT is ALLERGIC TO VANCOMYCIN. We will complete a short course of daptomycin. Today is day #4 o f 7-10 days. We will also check on a CPK in this patient who is tolerating the daptomycin well. León Delgadillo MD cc: 350 TT: 12/18/2016 14:11:06 Confirmation # [id number] Dictation # [id number] tn
--- NOTE | 2016-12-19 01:44 | PN ---
DATE: 12/18/2016 ADDENDUM: This is an addendum to the GI progress report dictated by Dolly Alberto. SUBJECTIVE: This patient feeling comfortable. She is now in TRCU for IV antibiotic therapy. PHYSICAL EXAMINATION: ABDOMEN: Soft. There is no tenderness. LABS: Reviewed. IMPRESSION: Status post cholecystectomy staph bacteremia on IV antibiotics. We will continue the pr esent management with antibiotics and followup of the LFTs. We will sign off. Please reconsult as n eeded. Thank you very much for allowing us to participate in the care of the patient. Rashmi Kwok MD cc: [phone] TT: 12/19/2016 01:43:56 Confirmation # [id number] Dictation # [id number] mn
[2016-12-19] MEDS: Pantoprazole 40mg/100ml IVPB 100 ML IVPB SCH (05:51)
[2016-12-19] MEDS: DAPTOmycin 500 MG in Sodium Chloride 0.9% 100 ML IV SCH (07:03)
--- NOTE | 2016-12-19 11:13 | HP ---
The patient admitted to TCU for continuation of IV antibiotics, status post cholecystectomy and posit mikey blood cultures x 2. HISTORY OF PRESENT ILLNESS: This is a 36-year-old female who had cholecystectomy. Blood cultures on admission shows gram-positive cocci in 2 sets. Also, patient admitted with leukocytosis. The patie nt was given vancomycin and then switched to daptomycin. Bone scan was negative and echocardiography was negative. Recommendation by ID to continue IV daptomycin for 7 more days. The patient has no c hills, no nausea, no vomiting, no other complaints. PAST MEDICAL HISTORY: Depression, bipolar disorder, status post cholecystectomy, cholelithiasis, UTI in the past, miscarriage, history of vaginal bleed. ALLERGIES: SHE IS ALLERGIC TO AZITHROMYCIN, CLARITHROMYCIN AND VANCOMYCIN. SOCIAL HISTORY: The patient has a boyfriend. A former smoker. No drugs, no alcohol. FAMILY HISTORY: Noncontributory. HOME MEDICATIONS: Usually she takes Klonopin twice a day and vitamins. REVIEW OF SYSTEMS: Abdominal pain status post surgery and anxiety at night mainly, and that is about it. PHYSICAL EXAMINATION: GENERAL: On the date, the patient seems comfortable, no distress. VITAL SIGNS: Temperature 98, heart rate 72, blood pressure 116/72, respirations 18, saturation 100%. HEAD AND NECK: Normal. No JVD, no thyromegaly. CHEST: Clear, good air entry. CARDIAC: First and second sounds are normal. ABDOMEN: Soft, obese. Tender in the site of surgery, right upper quadrant. EXTREMITIES: No edema. NEUROLOGIC: Normal. LABORATORY DATA: White count 11.7, hemoglobin 10.6, hematocrit 31.5, platelets 320. Chemistry: Sod ium 137, potassium 4, chloride 104, bicarb 25, BUN 10, creatinine 0.7, calcium 8.6. CPK 42. IMPRESSION AND PLAN: 1. Gram-positive coccemia. Continue IV daptomycin for 7 more days as per ID recommendations. 2. Status post cholecystectomy. The patient tolerated diet very well. Continue Protonix. Continue same diet. 3. History of panic disorder. Continue Klonopin p.r.n. Continue IV antibiotic and physical therapy. Follow up clinically. ID consult was requested for fol lowup on gram-positive coccemia. Also GI saw the patient, Dr. Kwok. Continue current treatment. Malachi Frias MD cc: 223 TT: 12/19/2016 11:13:15 adela
--- NOTE | 2016-12-19 15:19 | PN ---
DATE: 12/19/2016 The patient is in bed in no acute distress, nontoxic. No fevers and chills. PHYSICAL EXAMINATION: VITAL SIGNS: Temperature is 98, blood pressure is 120/70, respiratory rate of 16. HEENT: Unremarkable. NECK: Supple. LUNGS: Have decreased breath sounds. HEART: Normal S1, S2. ABDOMEN: Soft. LABORATORY DATA: Reveals the patient's white count is 11,700, hemoglobin of 10. BUN of 10, creatini ne 0.7. CK is 42. Microbiology is noted. The patient did have coag negative staph. Review of the orders reveals the patient to have daptomycin. ASSESSMENT AND PLAN: A 36-year-old female with resistant coag negative staph bacteremia, had a bone scan which was negative because of a plate in the foot, an echo which was negative, status post lapar oscopic cholecystectomy, postop day #6, history of depression, anxiety, history of obesity with left foot surgery, currently on daptomycin since the patient is ALLERGIC TO VANCOMYCIN. Today is day #5. Would complete 7 days. León Delgadillo MD cc: 350 TT: 12/19/2016 15:18:43 Confirmation # [id number] Dictation # [id number] shira
[2016-12-20] MEDS ORDERED: Morphine 2 mg/ml ISec IVP STA (01:48)
[2016-12-20 05:26] LABS: URINE BILIRUBIN NEGATIVE (NEGATIVE); URINE BLOOD TRACE-INTACT (NEGATIVE); URINE GLUCOSE (UA) NEGATIVE (NEGATIVE); URINE KETONE NEGATIVE (NEGATIVE); URINE LEUKOCYTE ESTERASE NEGATIVE Leu/uL (NEGATIVE); URINE PROTEIN NEGATIVE mg/dL (<30 mg/dL); URINE UROBILINOGEN 0.2 E.U./dL (<1 E.U./dL)
[2016-12-20 05:28] LABS: URINE APPEARANCE SLIGHT-CLOUDY (CLEAR); URINE COLOR YELLOW (YELLOW)
[2016-12-20 05:40] LABS: URINE BACTERIA SMALL (NEG); URINE RBC 0 - 2 /hpf (0-2); URINE WBC 0 - 2 /hpf (0-6)
[2016-12-20] MEDS: DAPTOmycin 500 MG in Sodium Chloride 0.9% 100 ML IV SCH (05:57)
[2016-12-20] MEDS: Pantoprazole 40mg/100ml IVPB 100 ML IVPB SCH (05:58)
[2016-12-20] MEDS: Sodium Chloride 0.9% 1,000 ML IV SCH ×2 (08:31→20:21)
--- NOTE | 2016-12-20 14:52 | PN ---
DATE: 12/20/2016 The patient is in bed in no acute distress, nontoxic. PHYSICAL EXAMINATION: VITAL SIGNS: Temperature is 98, blood pressure is 111/50, respiratory rate of 18, heart rate of 79. HEENT: Unremarkable. NECK: Supple. LUNGS: Have decreased breath sounds. HEART: Normal S1, S2. ABDOMEN: Soft, nontender. LABORATORY DATA: White count of 11,700, hemoglobin of 10, platelets of 320. BUN of 10, creatinine o f 0.7. Urinalysis reveals the patient has 0-2 WBCs. Microbiology is noted. ASSESSMENT AND PLAN: A 36-year-old female with resistant coag negative staph bacteremia. Had a bone scan which was negative. She does have a plate in her foot. Also had an echo which was negative. Had a laparoscopic cholecystectomy. Today is postop day #6. Would complete 7-10 days of antibiotics. She was complaining of left flank pain today and that is why the urinalysis was done. Currently gay jose is on daptomycin. Will order a CPK, which on the was 42. Will follow with you. León Delgadillo MD cc: 350 TT: 12/20/2016 14:51:59 Confirmation # [id number] Dictation # [id number] shira
[2016-12-21] MEDS: Sodium Chloride 0.9% 1,000 ML IV SCH (04:31)
[2016-12-21] MEDS: DAPTOmycin 500 MG in Sodium Chloride 0.9% 100 ML IV SCH (05:28)
[2016-12-21] MEDS: Pantoprazole 40mg/100ml IVPB 100 ML IVPB SCH (05:29)
--- NOTE | 2016-12-21 10:07 | PN ---
DATE: 12/21/2016 The patient is in bed, in no acute distress, nontoxic. PHYSICAL EXAMINATION: VITAL SIGNS: Temperature is 97, blood pressure is 100/50, respiratory rate of 16. HEENT: Unremarkable. NECK: Supple. LUNGS: Have decreased breath sounds. HEART: Normal S1, S2. ABDOMEN: Soft, nontender. LABORATORY EXAMINATION: Reveals the patient's white count of 11,700, hemoglobin of 10. Urinalysis i s noted. Microbiology is noted. ASSESSMENT AND PLAN: A 36-year-old female with coag-negative Staph bacteremia. The patient had a fabien ne scan because of a plate in the right foot, which is negative, an echo, which was negative. The pa rebeca had a laparoscopic cholecystectomy. Today is day #7 of daptomycin. Would complete 7-10 days o f antibiotics. The patient's thigh pain is improved. León Degladillo MD cc: 350 TT: 12/21/2016 10:06:19 Confirmation # [id number] Dictation # [id number] en
[2016-12-22] MEDS: Pantoprazole 40mg/100ml IVPB 100 ML IVPB SCH (06:17)
[2016-12-22] MEDS: DAPTOmycin 500 MG in Sodium Chloride 0.9% 100 ML IV SCH (07:34)
--- NOTE | 2016-12-22 14:25 | PN ---
DATE: 12/22/2016 The patient seen earlier this morning in room 322. No fevers and no chills, no nausea. PHYSICAL EXAMINATION: VITAL SIGNS: Temperature is 98, blood pressure is 110/60, respiratory rate of 18. HEENT: Unremarkable. NECK: Supple. LUNGS: Have decreased breath sounds. HEART: Normal S1, S2. ABDOMEN: Soft, nontender. LABORATORY DATA: Reveals a white count of 11,000, hemoglobin of 10, platelets of 220. Chemistries r eveal a BUN of 10, creatinine of 0.7. Urinalysis is noted. Microbiology reveals the patient's cultu res are reviewed. ASSESSMENT AND PLAN: A 36-year-old female with coag negative staph and negative bone scan of the nolberto te in the right foot, negative echo, laparoscopic cholecystectomy. Today is day #8 of daptomycin, ma y complete 7-10 days of daptomycin. The patient's stat CK is 42. Review of the orders reveals the d aptomycin to be active. León Delgadillo MD cc: 350 TT: 12/22/2016 14:24:55 Confirmation # [id number] Dictation # [id number] jn
--- NOTE | 2016-12-22 18:02 | PN ---
DATE: 12/22/2016 A 36-year-old female. The patient seems to be doing better. She has no new complaints. She is tole rating diet, walking around. No chest pain, no short of breath. PHYSICAL EXAMINATION: VITAL SIGNS: On the : Temperature 98.7, heart rate 79, blood pressure 111/59, respirations 14, s aturating is 95% on room air. HEAD AND NECK: Normal. No JVD, no thyromegaly. CHEST: Clear, good entry. CARDIAC: First and second sounds are normal. ABDOMEN: Soft, obese, nontender. EXTREMITIES: No edema. NEUROLOGIC: Normal. IMPRESSION AND PLAN: 1. Status post laparoscopic cholecystectomy, doing well, tolerating diet. 2. A period of hypotension probably related to pain medicines. Blood pressure stable now. She is c urrently on IV fluid, will discontinue it. 3. Gram positive ____ . Continue daptomycin IV. The patient seems to be doing better. Continue To radol p.r.n. for pain and Zofran p.r.n. for nausea. 4. Chronic patient has chronic anxiety, panic attacks. Continue Klonopin 1 mg b.i.d. p.r.n. Malachi Frias MD cc: 223 TT: 12/22/2016 18:01:27 Confirmation # [id number] Dictation # [id number] jn
--- NOTE | 2016-12-22 18:10 | PN ---
DATE: 12/22/2016 The patient clinically stable in TCU, doing well, walking around. No chest pain, no short of breath. PHYSICAL EXAMINATION: VITAL SIGNS: Her temperature is 98.2, heart rate 80, blood pressure 110/60, respirations 18, saturat ion 100% on room air. HEAD AND NECK: Normal. No JVD, no thyromegaly. CHEST: Clear, good entry. CARDIAC: First and second sounds are normal. ABDOMEN: Soft, obese, nontender. EXTREMITIES: No edema. NEUROLOGIC: Normal. IMPRESSION AND PLAN: 1. Gram-positive coccemia. Currently on daptomycin. Continue IV therapy. 2. Status post laparoscopic cholecystectomy, doing well. Continue Zofran p.r.n. 3. Chronic anxiety, panic attacks. Continue Klonopin p.r.n. 4. Generalized weakness. Continue physical therapy, walking around and doing physical therapy on da alex basis. We will follow up. Discontinue IV fluids. The patient's blood pressure is stable. Malachi Frias MD cc: 223 TT: 12/22/2016 18:09:51 Confirmation # [id number] Dictation # [id number] jn
--- NOTE | 2016-12-22 18:22 | PN ---
DATE: 12/20/2016 The patient is clinically stable. Blood pressure stable. No chest pain, no short of breath. Tolera ting diet. Her physical examination on 12/20 is as follows: Temperature 98.2, heart rate 72, blood pressure 86/53, respirations 20, saturation 98%. HEAD AND NECK: Normal. No JVD, no thyromegaly. CHEST EXAMINATION: Clear, good entry. CARDIAC: First sound, second sound normal. ABDOMEN: Soft, obese, nontender. EXTREMITIES: No edema. NEUROLOGICALLY: Normal. Her urine analysis came back normal. IMPRESSION AND PLAN: 1. Periods hypotension. Will continue IV fluid. Will DC it within 24 hours, as the blood pressure stayed stable. Avoid using pain medications. Walking around is better. Increase p.o. intakes, and move around 2. Status post laparoscopic cholecystectomy, doing well. Continue current treatment. 3. Chronic panic-anxiety attacks. Continue Klonopin p.r.n. 4. Obesity, generalized weakness. Continue physical therapy, continue current management. Will DC IV fluid in the morning. Malachi Frias MD cc: 223 TT: 12/22/2016 18:22:12 Confirmation # [id number] Dictation # [id number] jn
[2016-12-23] MEDS: DAPTOmycin 500 MG in Sodium Chloride 0.9% 100 ML IV SCH (05:59)
[2016-12-23] MEDS: Pantoprazole 40mg/100ml IVPB 100 ML IVPB SCH (05:59)
--- NOTE | 2016-12-23 16:54 | PN ---
DATE: 12/23/2016 The patient is in room 322. The patient is in bed in no acute distress, was seen earlier this sherry ramirez PHYSICAL EXAMINATION: VITAL SIGNS: Temperature is 98, blood pressure is 107/50, respiratory rate of 16. HEENT: Unremarkable. NECK: Supple. LUNGS: Have decreased breath sounds. HEART: Normal S1, S2. ABDOMEN: Soft. LABORATORY DATA: Reveals a white count of 11,700, hemoglobin of 10, platelets of 320 and BUN of 10, creatinine 0.7. Urinalysis is noted. ASSESSMENT AND PLAN: This is a 36-year-old female with coagulase-negative Staphylococcus, negative b one scan of the foot, since there is a right plate in the right foot; status post laparoscopic cholec ystectomy. Today is day #9 of daptomycin and CPK is normal. Would complete 7-10 days of daptomycin. León Delgadillo MD cc: 350 TT: 12/23/2016 16:53:27 Confirmation # [id number] Dictation # [id number] marian
--- NOTE | 2016-12-23 22:37 | PN ---
DATE: 12/23/2016 HISTORY OF PRESENT ILLNESS: A 36-year-old female. She is in TCU, receiving IV antibiotic daptomycin . She is doing well, walking around. No chest pain, no shortness of breath, no nausea, no vomiting. The patient almost 7 days of IV antibiotic, possibility of last dose tomorrow. PHYSICAL EXAMINATION: VITAL SIGNS: Temperature is 97.9, heart rate 74, blood pressure 103/76, respirations 20, saturation 99%. HEAD AND NECK: Normal. No JVD, no thyromegaly. CHEST: Clear, good air entry. CARDIAC: First and second sounds are normal. ABDOMEN: Soft, nontender, obese. EXTREMITIES: No edema. NEUROLOGIC: Normal. IMPRESSION AND PLAN: 1. Gram-positive coccemia. Continue IV daptomycin. 2. Status post laparoscopic cholecystectomy, doing well, tolerating diet well. 3. Panic disorder. Continue Klonopin. 4. Morbid obesity, weakness. Continue physical therapy. 5. We will follow up clinically. The patient may go home tomorrow. Will discuss with ID consult. Malachi Frias MD cc: 223 TT: 12/23/2016 22:36:55 Confirmation # [id number] Dictation # [id number] ln
--- NOTE | 2016-12-24 00:23 | CP.PCM.PN ---
Subjective - Date & Time of Evaluation Date of Evaluation: 12/24/16 Time of Evaluation: 00:20 - Subjective Subjective: Patient was seen at bedside because she complained of pain in lower abdomen , mainly right side. Has no other complaints. Denies nausea, vomiting, diarrhoea ,constipation, fever, chills. Medical record was reviewed. S/P Cholecystectomy. 36 year old woman had cholecystectomy done, blood culture grew gram negative cocci. PMH : Depression, bipolar disorder, cholelithiasis, UTI, miscarriage, vaginal bleeding. Objective - Vital Signs/Intake and Output Vital Signs (last 24 hours): Temp Pulse Resp BP Pulse Ox 98 F 98 H 18 94/60 L 96 12/23/16 16:00 12/23/16 16:00 12/23/16 16:00 12/23/16 16:00 12/23/16 16:00 - Medications Medications: Current Medications Clonazepam (Klonopin) 1 mg PO BID PRN; Protocol PRN Reason: Anxiety Last Admin: 12/23/16 21:35 Dose: 1 mg Pantoprazole Sodium (Protonix 40mg Ivpb) 100 mls @ 200 mls/hr IVPB 0600 BHARAT Last Admin: 12/23/16 05:59 Dose: 200 mls/hr Daptomycin 500 mg/ Sodium (Chloride) 100 mls @ 200 mls/hr IV 0600 BHARAT PRN Reason: Protocol Stop: 12/29/16 06:01 Last Admin: 12/23/16 05:59 Dose: 200 mls/hr Ondansetron HCl (Zofran Inj) 4 mg IVP Q4H PRN PRN Reason: Nausea/Vomiting - Labs Labs: 12/18/16 07:00 12/18/16 07:00 - Constitutional Appears: Well, No Acute Distress - Head Exam Head Exam: ATRAUMATIC, NORMAL INSPECTION, NORMOCEPHALIC - Eye Exam Eye Exam: Normal appearance - ENT Exam ENT Exam: Normal External Ear Exam - Neck Exam Neck Exam: Normal Inspection - Respiratory Exam Respiratory Exam: NORMAL BREATHING PATTERN - Cardiovascular Exam Cardiovascular Exam: absent: JVD - GI/Abdominal Exam GI & Abdominal Exam: Soft, Normal Bowel Sounds. absent: Distended, Firm, Guarding, Mass, Organomegaly, Pulsatile Mass, Rebound - Rectal Exam Rectal Exam: Deferred - Extremities Exam Extremities Exam: Normal Inspection - Back Exam Back Exam: NORMAL INSPECTION - Neurological Exam Neurological Exam: Alert, Oriented x3 - Psychiatric Exam Psychiatric exam: Normal Affect, Normal Mood - Skin Skin Exam: Normal Color Assessment and Plan - Assessment and Plan (Free Text) Assessment: A/P :Lower abdominal pain. S/P Cholecystectomy. Gram negative coccemia. Depression. Toradol 30 mg IV STAT.
[2016-12-24] MEDS: DAPTOmycin 500 MG in Sodium Chloride 0.9% 100 ML IV SCH (05:59)
[2016-12-24] MEDS: Pantoprazole 40mg/100ml IVPB 100 ML IVPB SCH (06:00)
[2016-12-24 06:43] VITALS: O2SAT 100
[2016-12-24 10:25] VITALS: BP 100/50; PULSE 77; RESP 18; TEMP 97
--- NOTE | 2016-12-25 09:00 | DS ---
The patient is a 36-year-old female who came in to TCU for IV antibiotic. The patient is doing well, has no chest pain, no other complaint. Walking around. The patient finished antibiotic. Will be d ischarged home. She is getting daptomycin. She finished her course of total 8 days in TCU in additi on to what she got on the medical floor. She was also getting Klonopin p.r.n. 1 mg, and medically st able otherwise. The patient seems stable. She will be discharged. PHYSICAL EXAMINATION ON DISCHARGE: VITAL SIGNS: Temperature 97.9, heart rate 68, blood pressure 100/50, respirations 18, sat 100%. HEAD AND NECK: Normal. No JVD, no thyromegaly. CHEST: Clear, good air entry. CARDIAC: First and second sounds are normal. ABDOMEN: Soft, nontender. EXTREMITIES: No edema. NEUROLOGIC: Normal. LABORATORY DATA: Laboratory was not done. IMPRESSION: 1. Status post laparoscopic cholecystectomy. Follow up as outpatient. 2. Gram-positive coccemia, received daptomycin. 3. Chronic anxiety and depression. 4. History of epigastric discomfort. She is on Protonix. PLAN: We will discharge the patient home. We will give her Protonix. Continue Klonopin. She has i t at home. We will follow up in a day or two. I will see on Saturday in the office or Saturday, and we will follow up on her case. Continue followup as outpatient. Malachi Frias MD cc: [phone] TT: 12/25/2016 08:59:13 jn
== END 2016-12-24 13:00 | disposition home or self-care (01) | DRG 945 ==
LOC: TRCU 19:01
PROVIDERS: ADMIT Internal Medicine; ATTEND Internal Medicine
PROC: 3E03329 Introduction of Other Anti-infective into Peripheral Vein, Percutaneous Approach (ICD-10-PCS; 2016-12-17)
PROC: F07Z9FZ Gait Training/Functional Ambulation Treatment using Assistive, Adaptive, Supportive or Protective Equipment (ICD-10-PCS; principal; 2016-12-19)
PROC: F07Z8FZ Transfer Training Treatment using Assistive, Adaptive, Supportive or Protective Equipment (ICD-10-PCS; 2016-12-19)
PROC: F08Z0FZ Bathing/Showering Techniques Treatment using Assistive, Adaptive, Supportive or Protective Equipment (ICD-10-PCS; 2016-12-20)
PROC: F08Z1ZZ Dressing Techniques Treatment (ICD-10-PCS; 2016-12-20)
DX: R53.1 Weakness (principal); K80.00 Calculus of gallbladder with acute cholecystitis without obstruction; R78.81 Bacteremia; B95.7 Other staphylococcus as the cause of diseases classified elsewhere; Z48.815 Encounter for surgical aftercare following surgery on the digestive system; Z79.2 Long term (current) use of antibiotics; E66.01 Morbid (severe) obesity due to excess calories; I95.2 Hypotension due to drugs; T50.995A Adverse effect of other drugs, medicaments and biological substances, initial encounter; F41.0 Panic disorder [episodic paroxysmal anxiety]; F31.9 Bipolar disorder, unspecified; F43.10 Post-traumatic stress disorder, unspecified; Z68.31 Body mass index [BMI] 31.0-31.9, adult; Z88.1 Allergy status to other antibiotic agents; Z87.891 Personal history of nicotine dependence

== ENCOUNTER 2017-10-21 07:57 | Emergency (ER) | payer MEDICARE, OTHER ==
[2017-10-21 08:07] VITALS: RESP 18; O2SAT 100; BMI 30.7
[2017-10-21] MEDS ORDERED: Sodium Chloride 0.9% 1,000 ML IV STA (08:42)
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
[2017-10-21 09:24] LABS: BASO # 0.01 K/mm3 (0.0-2.0); BASO % 0.1 % (0.0-3.0); EOS % 0.4 % (1.5-5.0); GRAN # 5.96 (1.4-6.5); GRAN % 65.4 % (50.0-68.0); HEMOGLOBIN 11.6 g/dL (12.0-16.0); LYMPH # 2.2 (1.2-3.4); LYMPH % 24.6 % (22.0-35.0); MEAN CORPUSCULAR HEMOGLOBIN 30.5 pg (25.0-35.0); MEAN CORPUSCULAR HGB CONC 32.1 g/dl (31.0-37.0); MEAN PLATELET VOLUME 8.8 fl (7.0-11.0); MONO # 0.9 (0.1-0.6); MONO % 9.5 % (1.0-6.0); RBC 3.8 10^6/uL (3.5-6.1); RED CELL DISTRIBUTION WIDTH 14.4 % (11.5-14.5); WHITE BLOOD COUNT 9.1 10^3/ul (4.5-11.0)
[2017-10-21 09:31] LABS: URINE APPEARANCE SLIGHT-CLOUDY (CLEAR); URINE BILIRUBIN NEGATIVE (NEGATIVE); URINE BLOOD LARGE (NEGATIVE); URINE COLOR YELLOW (YELLOW); URINE GLUCOSE (UA) NEGATIVE (NEGATIVE); URINE LEUKOCYTE ESTERASE NEGATIVE Leu/uL (NEGATIVE); URINE NITRATE NEGATIVE (NEGATIVE); URINE PROTEIN TRACE mg/dL (<30 mg/dL); URINE UROBILINOGEN 0.2 E.U./dL (<1 E.U./dL)
--- NOTE | 2017-10-21 09:31 | RAD ---
HISTORY: Abdominal pain COMPARISON: 12/11/2016. FINDINGS: LUNGS: The lungs are well inflated and clear. PLEURA: No significant pleural effusion identified, no pneumothorax apparent. CARDIOVASCULAR: Normal. OSSEOUS STRUCTURES: No significant abnormalities. VISUALIZED UPPER ABDOMEN: Normal. OTHER FINDINGS: None. IMPRESSION: No active pulmonary disease.
[2017-10-21 09:34] LABS: HCG,QUALITATIVE URINE NEGATIVE (NEGATIVE)
[2017-10-21 09:38] LABS: URINE AMORPHOUS SEDIMENT SMALL; URINE BACTERIA MANY (NEG); URINE RBC TNTC /hpf (0-2)
[2017-10-21 09:39] LABS: INR 0.92 (0.93-1.08); PARTIAL THROMBOPLASTIN TIME 24.9 Seconds (25.1-36.5); PROTHROMBIN TIME 10.6 SECONDS (9.4-12.5)
[2017-10-21 09:41] LABS: ALB/GLOB RATIO 1.3 (1.1-1.8); ALBUMIN 3.6 g/dL (3.0-4.8); ALT/SGPT 33 U/L (7-56); AST/SGOT 27 U/L (14-36); BLOOD UREA NITROGEN 14 mg/dL (7-21); CALCIUM 8.9 mg/dL (8.4-10.5); GFR AFRICAN-AMERICAN > 60; GFR NON-AFRICAN AMERICAN > 60; LIPASE 58 U/L (23-300)
[2017-10-21 09:45] VITALS: TEMP 98
[2017-10-21] MEDS ORDERED: Iohexol 350 MG/100 ML VIAL ONE (10:14)
--- NOTE | 2017-10-21 11:22 | CT ---
PROCEDURE: CT Abdomen and Pelvis with contrast HISTORY: Abdominal pain COMPARISON: 12/11/2016. TECHNIQUE: Scan of the abdomen and pelvis was performed after intravenous administration of contrast. Coronal and sagittal images were obtained. Contrast dose: 100 mL Omnipaque 350 Radiation dose: Total exam DLP = 524.02 mGy-cm. This CT exam was performed using one or more of the following dose reduction techniques: Automated exposure control, adjustment of the mA and/or kV according to patient size, and/or use of iterative reconstruction technique. FINDINGS: LOWER THORAX: There is subsegmental atelectasis in the lower lobes. LIVER: There is mild hepatomegaly and diffuse fatty infiltration. No focal lesion or intrahepatic biliary ductal dilatation. GALLBLADDER AND BILE DUCTS: Surgically absent. PANCREAS: Normal in size and appearance. No gross lesion or ductal dilatation. SPLEEN: Normal in size and appearance. ADRENALS: No discrete nodule. KIDNEYS AND URETERS: Normal in size with homogeneous enhancement. There is a 3 mm nonobstructing stone in the upper pole of the left kidney. No hydronephrosis. No solid mass. VASCULATURE: No aortic aneurysm. BOWEL: The small bowel loops are normal in caliber. The colon is unremarkable. No bowel dilatation or obstruction APPENDIX: The appendix is normal without inflammatory changes. PERITONEUM: No free fluid. No free air. LYMPH NODES: No enlarged lymph nodes. BLADDER: Decompressed. REPRODUCTIVE: The uterus is normal in size. There is an apparent low attenuation area in the posterior wall of the cervix with BONES: No acute fracture. Within normal limits for the patient's age. OTHER FINDINGS: None. IMPRESSION: 1. No acute abdominal or pelvic abnormality. 2. Apparent low density area in the posterior wall of the cervix makes is questionable and not completely characterized on this examination. Correlation with pelvic ultrasound is recommended for definitive evaluation. 3. 3 mm nonobstructing stone in the upper pole of the left kidney. 4. Mild hepatomegaly and hepatic steatosis.
[2017-10-21 11:58] VITALS: BP 104/68; PULSE 68
== END 2017-10-21 12:03 | disposition home or self-care (01) ==
LOC: ED 07:57
DX: R10.9 Unspecified abdominal pain (principal); S40.862A Insect bite (nonvenomous) of left upper arm, initial encounter; W57.XXXA Bitten or stung by nonvenomous insect and other nonvenomous arthropods, initial encounter; Y92.9 Unspecified place or not applicable; D64.9 Anemia, unspecified
CPT/HCPCS: 71045; 74177; 80053; 81001; 83690; 84703; 85025; 85610; 85730; 96374; 99284; J2405; J7040; Q9967